=== PATIENT | male | born 1960 | race African-American/Black ===

== ENCOUNTER 2016-12-20 14:21 | Inpatient (IN) | payer OTHER ==
[2016-12-20 18:45] VITALS: BMI 20.7
--- NOTE | 2016-12-20 20:15 | HP ---
CIWA Score - CIWA Score Nausea/Vomitin Muscle Tremors: 4-Moderate,w/Arms Extend Anxiety: 4-Mod. Anxious/Guarded Agitation: 4-Moderately Restless Paroxysmal Sweats: No Perspiration Orientation: 1-Uncertain about Date Tacttile Disturbances: 0-None Auditory Disturbances: 0-None Visual Disturbances: 0-None Headache: 2-Mild CIWA-Ar Total Score: 18 Admission ROS BHS - HPI Chief Complaint: c/o alcohol withdrawal. seeking detox txment Allergies/Adverse Reactions: Allergies Allergy/AdvReac Type Severity Reaction Status Date / Time No Known Allergies Allergy Verified 12/20/16 19:52 History of Present Illness: 56 Y.O. MALE WITH ALCOHOLISM ADMITTED TO DETOX. CLIENT STATES LAST DETOX WAS 2015. SENT FROM [facility] WHERE HE PRESENTED EARLIER DUE TO INTOXICATION. REORTS LONGEST CLEAN TIME 5 MONTHS. Exam Limitations: No Limitations - Ebola screening Have you traveled outside of the country in the last 21 days: No Have you had contact with anyone from an Ebola affected area: No Do you have a fever: No - Review of Systems Constitutional: Chills, Loss of Appetite, Night Sweats EENT: reports: Other (EDENTULOUS) Respiratory: reports: No Symptoms reported Cardiac: reports: No Symptoms Reported GI: reports: Diarrhea, Vomiting : reports: No Symptoms Reported Musculoskeletal: reports: Back Pain Integumentary: reports: No Symptoms Reported Neuro: reports: Seizure (ETOH WITHDRAWAL) Endocrine: reports: No Symptoms Reported Hematology: reports: No Symptoms Reported Psychiatric: reports: Anxious, Depressed Other Systems: Reviewed and Negative Patient History - Patient Medical History Hx Anemia: No Hx Asthma: Yes Hx Chronic Obstructive Pulmonary Disease (COPD): Yes Hx Cancer: No Hx Cardiac Disorders: No Hx Congestive Heart Failure: No Hx Hypertension: Yes Hx Hypercholesterolemia: No Hx Pacemaker: No HX Cerebrovascular Accident: No Hx Seizures: Yes (alcohol related -last sz 8 months ago) Hx Dementia: No Hx Diabetes: No Hx Gastrointestinal Disorders: No Hx Liver Disease: No Hx Genitourinary Disorders: No Hx Sexually Transmitted Disorders: No Hx Renal Disease (ESRD): No Hx Thyroid Disease: No Hx Human Immunodeficiency Virus (HIV): No Hx Hepatitis C: No Hx Depression: Yes Hx Suicide Attempt: No Hx Bipolar Disorder: Yes Hx Schizophrenia: No Other Medical History: DENIES - Patient Surgical History Past Surgical History: No Hx Neurologic Surgery: No Hx Cataract Extraction: No Hx Cardiac Surgery: No Hx Lung Surgery: No Hx Breast Surgery: No Hx Breast Biopsy: No Hx Abdominal Surgery: No Hx Appendectomy: No Hx Cholecystectomy: No Hx Genitourinary Surgery: No Hx Section: No Hx Orthopedic Surgery: No Anesthesia Reaction: No - PPD History Previous Implant?: Yes Documented Results: Negative w/proof Implanted On Prior [facility] Admission?: Yes Date: 02/28/16 Results: 0MM PPD to be Administered?: No - Smoking Cessation Smoking history: Current every day smoker Have you smoked in the past 12 months: Yes Aproximately how many cigarettes per day: 4 Cigars Per Day: 0 Hx Chewing Tobacco Use: No Initiated information on smoking cessation: Yes 'Breaking Loose' booklet given: 12/20/16 - Substance & Tx. History Hx Alcohol Use: Yes Hx Substance Use: Yes Substance Use Type: Alcohol, Cocaine Hx Substance Use Treatment: Yes ([facility]) - Substances Abused Alcohol Route: Oral Frequency: Daily Amount used: bacardi 1 pint, beer 4 of 24 oz Age of first use: 12 Date of Last Use: 12/20/16 Cocaine Route: Smoking Frequency: Daily Amount used: $40 Age of first use: 23 Date of Last Use: 12/19/16 Admission Physical Exam S - Vital Signs Vital Signs: Vital Signs - 24 hr 12/20/16 18:39 Temperature 96.3 F L Pulse Rate 65 Respiratory 18 Rate Blood Pressure 160/113 - Physical General Appearance: Yes: Appropriately Dressed, Tremorous, Anxious HEENTM: Yes: EOMI, Normocephalic, JACQUIE, Pharynx Normal, Other (EDENTULOUS) Respiratory: Yes: Chest Non-Tender, Lungs Clear, Normal Breath Sounds, No Respiratory Distress, No Accessory Muscle Use Neck: Yes: No masses,lesions,Nodules, Supple, Trachea in good position Breast: Yes: Breast Exam Deferred Cardiology: Yes: Regular Rhythm, Regular Rate, S1, S2 Abdominal: Yes: Normal Bowel Sounds, Non Tender, Soft Genitourinary: Yes: Within Normal Limits Back: Yes: Normal Inspection Musculoskeletal: Yes: Gait Steady Extremities: Yes: Normal Capillary Refill, Normal Range of Motion, Non-Tender, Tremors 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 NML intact, Alert, Motor Strength 5/5 Integumentary: Yes: Normal Color, Dry, Warm Lymphatic: Yes: Within Normal Limits - Diagnostic (1) Alcohol dependence with uncomplicated withdrawal Current Visit: Yes Status: Chronic (2) Cocaine dependence Current Visit: Yes Status: Chronic Qualifiers: Substance use status: uncomplicated Qualified Code(s): F14.20 - Cocaine dependence, uncomplicated; F14.20 - Cocaine dependence, uncomplicated; F14.20 - Cocaine dependence, uncomplicated (3) Nicotine dependence Current Visit: Yes Status: Chronic Qualifiers: Nicotine product type: cigarettes Substance use status: uncomplicated Qualified Code(s): F17.210 - Nicotine dependence, cigarettes, uncomplicated; F17.210 - Nicotine dependence, cigarettes, uncomplicated (4) COPD (chronic obstructive pulmonary disease) Current Visit: Yes Status: Chronic Qualifiers: Chronic bronchitis type: simple (5) HTN (hypertension) Current Visit: Yes Status: Chronic Qualifiers: Hypertension type: essential hypertension Qualified Code(s): I10 - Essential (primary) hypertension; I10 - Essential (primary) hypertension; I10 - Essential (primary) hypertension (6) Asthma Current Visit: Yes Status: Chronic Qualifiers: Asthma severity: mild Asthma persistence: unspecified Asthma complication type: uncomplicated Qualified Code(s): J45.909 - Unspecified asthma, uncomplicated; J45.909 - Unspecified asthma, uncomplicated; J45.909 - Unspecified asthma, uncomplicated Cleared for Admission BHS - Detox or Rehab [facility] Level of Care: Medically Managed Detox Regimen/Protocol: Librium [facility] Breath Alcohol Content Breath Alcohol Content: 0 Urine Drug Screen - Results Drug Screen Negative: No Urine Drug Screen Results: AIRAM-Cocaine, BZO-Benzodiazepines, MTD-Methadone, TCA- Tricyclic Antidepress
[2016-12-20] MEDS ORDERED: hydrOXYzine PAMOATE 50 MG CAPSULE (FP) PO PRN (20:23)
[2016-12-20] MEDS ORDERED: NICOTINE POLACRILEX 2 MG GUM BUC PRN (20:23)
[2016-12-20] MEDS ORDERED: MAGNESIUM CITRATE 300 ML BOTTLE PO PRN (20:23)
[2016-12-20] MEDS ORDERED: MAGNESIUM HYDROX 2400MG/30ML ORAL SUSPENSION 30 ML CUP PO PRN (20:23)
[2016-12-20] MEDS ORDERED: diphenhydrAMINE HCL 50 MG CAPSULE PO PRN (20:23)
[2016-12-20] MEDS ORDERED: P-EPHED 60MG/TRIPROLIDI 2.5MG TABLET PO PRN (20:23)
[2016-12-20] MEDS ORDERED: MENTHOL/PHENOL 1 EACH UD MM PRN (20:23)
[2016-12-20] MEDS ORDERED: guaiFENesin/D-METHORPHAN HB 10 ML UNIT-DOSE CUPS PO PRN (20:23)
[2016-12-20] MEDS ORDERED: MAG HYDROX/AL HYDROX/SIMETH 30 ML UNIT-DOSE CUP PO PRN (20:23)
[2016-12-20] MEDS ORDERED: ACETAMINOPHEN 325 MG TABLET (FP) PO PRN (20:23)
[2016-12-20] MEDS ORDERED: LOPERAMIDE HCL 2 MG CAPSULE PO PRN (20:23)
[2016-12-20] MEDS ORDERED: IBUPROFEN 400 MG TABLET (FP) PO PRN (20:23)
[2016-12-20] MEDS ORDERED: chlordiazePOXIDE HCL 25 MG CAPSULE PO PRN (20:23)
[2016-12-20] MEDS ORDERED: ALBUTEROL SO4 18 GM HFA INHALER IH PRN (20:24)
[2016-12-20] MEDS: MONTELUKAST NA 10 MG TABLET PO SCH (23:22)
[2016-12-20] MEDS: amLODIPine BESYLATE 10 MG TABLET (FP) PO SCH (23:22)
[2016-12-20] MEDS: chlordiazePOXIDE HCL 25 MG CAPSULE PO SCH (23:22)
[2016-12-20] MEDS: THIAMINE HCL 100 MG TABLET (FP) PO SCH (23:23)
[2016-12-20] MEDS: FLUTICASONE PROP 0.05% 16 GM NASAL SPRAY NS SCH (23:23)
[2016-12-20] MEDS: NICOTINE 14 MG/24 HOURS TOPICAL PATCH TD SCH (23:23)
[2016-12-20] MEDS: ONDANSETRON *ODT* 4 MG TABLET SL PRN (23:24)
[2016-12-21 01:30] LABS: URINE APPEARANCE CLEAR; URINE BILIRUBIN NEGATIVE (NEGATIVE); URINE BLOOD NEGATIVE (NEGATIVE); URINE COLOR DKYELLOW; URINE GLUCOSE (UA) NEGATIVE (NEGATIVE); URINE KETONE NEGATIVE (NEGATIVE); URINE NITRITE NEGATIVE (NEGATIVE); URINE PROTEIN 1+ (NEGATIVE); URINE UROBILINOGEN NEGATIVE mg/dL (0.2-1.0)
[2016-12-21 01:46] LABS: URINE MUCUS MANY; URINE RBC 2 /hpf (0-3)
[2016-12-21] MEDS: chlordiazePOXIDE HCL 25 MG CAPSULE PO SCH ×4 (05:13→22:08)
[2016-12-21] MEDS ORDERED: METHADONE HCL 40 MG DISPERSABLE TABLET PO SCH (08:30)
[2016-12-21 08:32] LABS: URINE WBC 2 /hpf (3-5)
[2016-12-21] MEDS ORDERED: METHADONE HCL 40 MG DISPERSABLE TABLET ONE (09:01)
[2016-12-21] MEDS ORDERED: METHADONE HCL 10 MG TABLET ONE (09:02)
[2016-12-21 09:54] LABS: MCH 32.1 pg (25.7-33.7); MCHC 33.5 g/dl (32.0-35.9); MEAN CELL VOLUME 95.6 fl (80-96); MEAN PLT VOLUME 7.9 fl (7.5-11.1); PLATELET COUNT 232 K/MM3 (134-434); RDW 12.9 % (11.9-15.9)
[2016-12-21 10:02] LABS: ALBUMIN 3.3 g/dl (3.4-5.0); ANION GAP 5 (8-16); BILIRUBIN,TOTAL 0.4 mg/dL (0.2-1.0); CALCIUM 8.2 mg/dL (8.5-10.1); CO2 34 mmol/L (21-32); CREATININE 0.8 mg/dL (0.7-1.3); GLUCOSE,RANDOM 87 mg/dL (74-106); SGOT/AST 13 U/L (15-37); SGPT/ALT 21 U/L (12-78); TOT PROT 6.6 g/dl (6.4-8.2)
[2016-12-21 10:03] LABS: ALK PHOS 122 U/L (45-117)
[2016-12-21] MEDS: PRENATAL VITAMINS W/ FOLIC ACID TABLET (FP) PO SCH (10:07)
[2016-12-21] MEDS: amLODIPine BESYLATE 10 MG TABLET (FP) PO SCH (10:07)
[2016-12-21] MEDS: METHADONE 80 MG, METHADONE 20 MG PO SCH (10:08)
[2016-12-21] MEDS: NICOTINE 14 MG/24 HOURS TOPICAL PATCH TD SCH ×2 (10:11→10:13)
[2016-12-21] MEDS: ONDANSETRON *ODT* 4 MG TABLET SL PRN ×2 (10:12→17:42)
[2016-12-21 10:24] LABS: URINE LEUK ESTERASE Negative (NEGATIVE)
--- NOTE | 2016-12-21 10:25 | PN ---
BHS CIWA - CIWA Score Nausea/Vomitin Muscle Tremors: 3 Anxiety: 3 Paroxysmal Sweats: 1-Minimal Palms Moist Orientation: 0-Oriented Tacttile Disturbances: 1-Very Mild Itch/Numbness Auditory Disturbances: 1-Very Mild Visual Disturbances: 0-None Headache: 2-Mild BHS Progress Note (SOAP) Subjective: alert,irritable,anxious,interrupted sleep,tremor,aching pain Objective: 12/21/16 10:22 Vital Signs Temperature 97.9 F 12/21/16 10:00 Pulse Rate 60 12/21/16 10:00 Respiratory Rate 20 12/21/16 10:00 Blood Pressure 155/79 12/21/16 10:00 O2 Sat by Pulse Oximetry (%) ekg sinus bradycardia 54/min,non specific t wave no chest pain,no sob,no dizziness Laboratory Last Values WBC 5.0 K/mm3 (4.0-10.0) 12/21/16 07:00 RBC 4.05 M/mm3 (4.00-5.60) 12/21/16 07:00 Hgb 13.0 GM/dL (11.7-16.9) 12/21/16 07:00 Hct 38.7 % (35.4-49) 12/21/16 07:00 MCV 95.6 fl (80-96) 12/21/16 07:00 MCH 32.1 pg (25.7-33.7) 12/21/16 07:00 MCHC 33.5 g/dl (32.0-35.9) 12/21/16 07:00 RDW 12.9 % (11.9-15.9) 12/21/16 07:00 Plt Count 232 K/MM3 (134-434) 12/21/16 07:00 MPV 7.9 fl (7.5-11.1) 12/21/16 07:00 Urine Color Dkyellow 12/20/16 23:30 Urine Appearance Clear 12/20/16 23:30 Urine pH 6.0 (5.0-8.0) 12/20/16 23:30 Urine Protein 1+ (NEGATIVE) H 12/20/16 23:30 Urine Glucose (UA) Negative (NEGATIVE) 12/20/16 23:30 Urine Ketones Negative (NEGATIVE) 12/20/16 23:30 Urine Blood Negative (NEGATIVE) 12/20/16 23:30 Urine Nitrite Negative (NEGATIVE) 12/20/16 23:30 Urine Bilirubin Negative (NEGATIVE) 12/20/16 23:30 Urine Urobilinogen Negative mg/dL (0.2-1.0) 12/20/16 23:30 Urine RBC 2 /hpf (0-3) 12/20/16 23:30 Urine WBC 2 /hpf (3-5) 12/20/16 23:30 Urine Mucus Many 12/20/16 23:30 RPR Titer Nonreactive (NONREACTIVE) 12/21/16 07:00 labs pending Assessment: 12/21/16 10:24 withdrawal symptom Plan: continue detox
--- NOTE | 2016-12-21 12:14 | CONSULT ---
[facility] Psychiatric Consult - Data Date of interview: 12/21/16 Admission source: [facility] Identifying data: Another admission to [facility] for this 56 y/o AA male seeking detox treatment on for alcohol and cocaine dependence.Patient is ,a father of five,domiciled,unemployed and supported on SSI benefits. Substance Abuse History: Confirmed by patient. Smoking Cessation. Smoking history: Current every day smoker. Have you smoked in the past 12 months: Yes. Aproximately how many cigarettes per day: 4. Cigars Per Day: 0. Hx Chewing Tobacco Use: No. Initiated information on smoking cessation: Yes. 'Breaking Loose' booklet given: 12/20/16. - Substance & Tx. History. Hx Alcohol Use: Yes. Hx Substance Use: Yes. Substance Use Type: Alcohol, Cocaine. Hx Substance Use Treatment: Yes ([facility]). - Substances Abused. Alcohol. Route: Oral. Frequency: Daily. Amount used: bacardi 1 pint, beer 4 of 24 oz. Age of first use: 12. Date of Last Use: 12/20/16. Cocaine. Route: Smoking. Frequency: Daily. Amount used: $40. Age of first use: 23. Date of Last Use: 12/19/16 Medical History: Significant for asthma,emphysema/COPD,hypertension and alcohol- related seizures. Psychiatric History: Patient denies history of psychiatric hospitalizations.Mr Stevens reports OPD care at the [facility] health clinic on [facility] in the [place].Diagnosed with MDD and prescribed prozac (dose not recalled).History of one suicide attempt (via overdose with pills).Currently on methadone maintenance (100 mg/day). Physical/Sexual Abuse/Trauma History: Patient denies. Mental Status Exam - Mental Status Exam Alert and Oriented to: Time, Place, Person Cognitive Function: Good Patient Appearance: Well Groomed Mood: Withdrawn, Hopeful Affect: Mood Congruent Patient Behavior: Fatigued, Appropriate, Cooperative Speech Pattern: Clear Voice Loudness: Normal Thought Process: Goal Oriented Thought Disorder: Not Present Hallucinations: Denies Suicidal Ideation: Denies Homicidal Ideation: Denies Insight/Judgement: Poor Sleep: Poorly, Difficulty falling asleep (wants ambien) Appetite: Fair Muscle strength/Tone: Normal Gait/Station: Normal Psychiatric Findings - Problem List ([place] 1, 2,3) (1) Alcohol dependence with uncomplicated withdrawal Current Visit: Yes Status: Acute (2) Cocaine dependence Current Visit: Yes Status: Acute Qualifiers: Substance use status: uncomplicated Qualified Code(s): F14.20 - Cocaine dependence, uncomplicated; F14.20 - Cocaine dependence, uncomplicated; F14.20 - Cocaine dependence, uncomplicated (3) Opioid dependence on agonist therapy Current Visit: Yes Status: Acute (4) Nicotine dependence Current Visit: Yes Status: Acute Qualifiers: Nicotine product type: cigarettes Substance use status: uncomplicated Qualified Code(s): F17.210 - Nicotine dependence, cigarettes, uncomplicated; F17.210 - Nicotine dependence, cigarettes, uncomplicated (5) Substance induced mood disorder Current Visit: Yes Status: Acute (6) Asthma Current Visit: Yes Status: Chronic Qualifiers: Asthma severity: mild Asthma persistence: unspecified Asthma complication type: uncomplicated Qualified Code(s): J45.909 - Unspecified asthma, uncomplicated; J45.909 - Unspecified asthma, uncomplicated; J45.909 - Unspecified asthma, uncomplicated (7) COPD (chronic obstructive pulmonary disease) Current Visit: Yes Status: Chronic Qualifiers: Chronic bronchitis type: simple (8) HTN (hypertension) Current Visit: Yes Status: Chronic Qualifiers: Hypertension type: essential hypertension Qualified Code(s): I10 - Essential (primary) hypertension; I10 - Essential (primary) hypertension; I10 - Essential (primary) hypertension - Initial Treatment Plan Initial Treatment Plan: Psychoeducation.Detoxification.Prozac 10 mg po daily.Side effects/benefits are discussed with the patient.He agrees with this careplan.Observation.
[2016-12-21] MEDS: THIAMINE HCL 100 MG TABLET (FP) PO SCH (22:08)
[2016-12-21] MEDS: MONTELUKAST NA 10 MG TABLET PO SCH (22:08)
[2016-12-21] MEDS: FLUTICASONE PROP 0.05% 16 GM NASAL SPRAY NS SCH (22:08)
[2016-12-22] MEDS ORDERED: METHADONE HCL 40 MG DISPERSABLE TABLET ONE (05:02)
[2016-12-22] MEDS ORDERED: METHADONE HCL 10 MG TABLET ONE (05:02)
[2016-12-22] MEDS: METHADONE 80 MG, METHADONE 20 MG PO SCH (05:06)
[2016-12-22] MEDS: chlordiazePOXIDE HCL 25 MG CAPSULE PO SCH ×2 (05:06→10:33)
[2016-12-22] MEDS ORDERED: FLUoxetine HCL 10 MG CAPSULE (FP) PO SCH (10:00)
[2016-12-22] MEDS: PRENATAL VITAMINS W/ FOLIC ACID TABLET (FP) PO SCH (10:32)
[2016-12-22] MEDS: NICOTINE 14 MG/24 HOURS TOPICAL PATCH TD SCH (10:32)
[2016-12-22] MEDS: amLODIPine BESYLATE 10 MG TABLET (FP) PO SCH (10:33)
--- NOTE | 2016-12-22 10:40 | PN ---
S CIWA - CIWA Score Nausea/Vomitin Muscle Tremors: 3 Anxiety: 3 Agitation: 2 Paroxysmal Sweats: 1-Minimal Palms Moist Orientation: 0-Oriented Tacttile Disturbances: 1-Very Mild Itch/Numbness Auditory Disturbances: 1-Very Mild Visual Disturbances: 0-None Headache: 2-Mild CIWA-Ar Total Score: 16 BHS Progress Note (SOAP) Subjective: alert,irritable,anxious,interrupted sleep,tremor Objective: 12/22/16 10:39 Vital Signs Temperature 98.4 F 12/22/16 06:21 Pulse Rate 51 L 12/22/16 06:21 Respiratory Rate 16 12/22/16 06:21 Blood Pressure 146/89 12/22/16 06:21 O2 Sat by Pulse Oximetry (%) Laboratory Last Values WBC 5.0 K/mm3 (4.0-10.0) 12/21/16 07:00 RBC 4.05 M/mm3 (4.00-5.60) 12/21/16 07:00 Hgb 13.0 GM/dL (11.7-16.9) 12/21/16 07:00 Hct 38.7 % (35.4-49) 12/21/16 07:00 MCV 95.6 fl (80-96) 12/21/16 07:00 MCH 32.1 pg (25.7-33.7) 12/21/16 07:00 MCHC 33.5 g/dl (32.0-35.9) 12/21/16 07:00 RDW 12.9 % (11.9-15.9) 12/21/16 07:00 Plt Count 232 K/MM3 (134-434) 12/21/16 07:00 MPV 7.9 fl (7.5-11.1) 12/21/16 07:00 Sodium 143 mmol/L (136-145) 12/21/16 07:00 Potassium 3.9 mmol/L (3.5-5.1) 12/21/16 07:00 Chloride 104 mmol/L (98-107) 12/21/16 07:00 Carbon Dioxide 34 mmol/L (21-32) H 12/21/16 07:00 Anion Gap 5 (8-16) L 12/21/16 07:00 BUN 11 mg/dL (7-18) 12/21/16 07:00 Creatinine 0.8 mg/dL (0.7-1.3) D 12/21/16 07:00 Creat Clearance w eGFR > 60 (>60) 12/21/16 07:00 Random Glucose 87 mg/dL (74-106) D 12/21/16 07:00 Calcium 8.2 mg/dL (8.5-10.1) L 12/21/16 07:00 Total Bilirubin 0.4 mg/dL (0.2-1.0) 12/21/16 07:00 AST 13 U/L (15-37) L D 12/21/16 07:00 ALT 21 U/L (12-78) 12/21/16 07:00 Alkaline Phosphatase 122 U/L (45-117) H D 12/21/16 07:00 Total Protein 6.6 g/dl (6.4-8.2) 12/21/16 07:00 Albumin 3.3 g/dl (3.4-5.0) L 12/21/16 07:00 Urine Color Dkyellow 12/20/16 23:30 Urine Appearance Clear 12/20/16 23:30 Urine pH 6.0 (5.0-8.0) 12/20/16 23:30 Ur Specific [place] 1.025 (1.005-1.025) 12/20/16 23:30 Urine Protein 1+ (NEGATIVE) H 12/20/16 23:30 Urine Glucose (UA) Negative (NEGATIVE) 12/20/16 23:30 Urine Ketones Negative (NEGATIVE) 12/20/16 23:30 Urine Blood Negative (NEGATIVE) 12/20/16 23:30 Urine Nitrite Negative (NEGATIVE) 12/20/16 23:30 Urine Bilirubin Negative (NEGATIVE) 12/20/16 23:30 Urine Urobilinogen Negative mg/dL (0.2-1.0) 12/20/16 23:30 Ur Leukocyte Esterase Negative (NEGATIVE) 12/20/16 23:30 Urine RBC 2 /hpf (0-3) 12/20/16 23:30 Urine WBC 2 /hpf (3-5) 12/20/16 23:30 Urine Mucus Many 12/20/16 23:30 RPR Titer Nonreactive (NONREACTIVE) 12/21/16 07:00 Assessment: 12/22/16 10:39 withdrawal symptom Plan: continue detox
--- NOTE | 2016-12-22 11:05 | EKG ---
Test Reason : Blood Pressure : / mmHG Vent. Rate : 054 BPM Atrial Rate : 054 BPM P-R Int : 164 ms QRS Dur : 092 ms QT Int : 482 ms P-R-T Axes : 072 029 -01 degrees QTc Int : 457 ms SINUS BRADYCARDIA NONSPECIFIC T WAVE ABNORMALITY ABNORMAL ECG NO PREVIOUS ECGS AVAILABLE Confirmed by KIERSTEN YADAV MD ([id number]) on 12/22/2016 11:05:32 AM Referred By: Confirmed By:KIERSTEN YADAV MD
[2016-12-22 13:41] VITALS: BP 151/104; PULSE 60; TEMP 96.8
--- NOTE | 2016-12-22 15:25 | PN ---
S Progress Note Note: patient did not want to complete treatment ,seen by counselor,did not want to wait,signed release ama
--- NOTE | 2016-12-22 15:26 | DS ---
[facility] Detox Discharge Summary Admission Date: 12/20/16 Discharge Date: 12/22/16 - History Present History: Alcohol Dependence, Cocaine Dependence Additional Comments: patient did not want to complete treatment,did not want to wait,seen by counselor,signed release ama Pertinent Past History: nicotine dependence copd asthma - Physical Exam Results Vital Signs: Vital Signs Temperature 96.8 F L 12/22/16 13:40 Pulse Rate 60 12/22/16 13:40 Respiratory Rate 16 12/22/16 13:40 Blood Pressure 151/104 12/22/16 13:40 O2 Sat by Pulse Oximetry (%) Pertinent Admission Physical Exam Findings: withdrawal symptom - Medication Discharge Medications: Ambulatory Orders Albuterol Sulfate Inhaler - [Ventolin Hfa Inhaler -] 2 inh PO Q4H PRN 02/26/16 Amlodipine Besylate [Norvasc -] 10 mg PO DAILY 02/26/16 Fluticasone Prop 0.05% Nasal [Flonase -] 1 spray NS HS 02/26/16 Montelukast Na [Singulair -] 10 mg PO HS 02/26/16 Fluoxetine HCl [Prozac] 10 mg PO DAILY 12/20/16 Fluoxetine HCl [Prozac -] 10 mg PO DAILY #30 capsule 12/21/16 - Diagnosis (1) Alcohol dependence with uncomplicated withdrawal Status: Acute (2) Cocaine dependence Status: Acute Qualifiers: Substance use status: uncomplicated Qualified Code(s): F14.20 - Cocaine dependence, uncomplicated; F14.20 - Cocaine dependence, uncomplicated; F14.20 - Cocaine dependence, uncomplicated (3) Nicotine dependence Status: Acute Qualifiers: Nicotine product type: cigarettes Substance use status: uncomplicated Qualified Code(s): F17.210 - Nicotine dependence, cigarettes, uncomplicated; F17.210 - Nicotine dependence, cigarettes, uncomplicated (4) Asthma Status: Chronic Qualifiers: Asthma severity: mild Asthma persistence: unspecified Asthma complication type: uncomplicated Qualified Code(s): J45.909 - Unspecified asthma, uncomplicated; J45.909 - Unspecified asthma, uncomplicated; J45.909 - Unspecified asthma, uncomplicated (5) COPD (chronic obstructive pulmonary disease) Status: Chronic Qualifiers: Chronic bronchitis type: simple (6) HTN (hypertension) Status: Chronic Qualifiers: Hypertension type: essential hypertension Qualified Code(s): I10 - Essential (primary) hypertension; I10 - Essential (primary) hypertension; I10 - Essential (primary) hypertension (7) Opioid dependence on agonist therapy Status: Acute - AMA Did Patient Leave Against Medical Advice: Yes
[2016-12-22] MEDS ORDERED: chlordiazePOXIDE 5 MG CAPSULE PO SCH (23:00)
[2016-12-23] MEDS ORDERED: chlordiazePOXIDE HCL 10 MG CAPSULE PO SCH (23:00)
== END 2016-12-22 14:40 | disposition left against medical advice (07) | DRG 770 ==
LOC: YASAS 14:21 → Y6N 21:40
PROVIDERS: ADMIT Internal Medicine; ATTEND Internal Medicine
PROC: HZ2ZZZZ Detoxification Services for Substance Abuse Treatment (ICD-10-PCS; principal; 2016-12-20)
DX: F11.20 Opioid dependence, uncomplicated (principal); F10.230 Alcohol dependence with withdrawal, uncomplicated; F14.20 Cocaine dependence, uncomplicated; F17.210 Nicotine dependence, cigarettes, uncomplicated; F19.24 Other psychoactive substance dependence with psychoactive substance-induced mood disorder; F32.9 Major depressive disorder, single episode, unspecified; I10 Essential (primary) hypertension; J45.909 Unspecified asthma, uncomplicated; J44.9 Chronic obstructive pulmonary disease, unspecified; Z86.69 Personal history of other diseases of the nervous system and sense organs
CPT/HCPCS: 36415; 80053; 81003; 81015; 85027; 86593; 93005; 93010

== ENCOUNTER 2018-09-04 13:55 | Inpatient (IN) | payer OTHER ==
[2018-09-04 17:29] VITALS: BMI 20.3
--- NOTE | 2018-09-04 19:08 | HP ---
CIWA Score Nausea/Vomitin Muscle Tremors: 3 Anxiety: 3 Agitation: 1-Slight > Activity Paroxysmal Sweats: 1-Minimal Palms Moist Orientation: 0-Oriented Tacttile Disturbances: 0-None Auditory Disturbances: 0-None Visual Disturbances: 0-None Headache: 2-Mild CIWA-Ar Total Score: 12 - Admission Criteria OASAS Guidelines: Admission for Medically Managed Detox: Requires at least one of the followin. CIWA greater than 12 2. Seizures within the past 24 hours 3. Delirium tremens within the past 24 hours 4. Hallucinations within the past 24 hours 5. Acute intervention needed for co occurring medical disorder 6. Acute intervention needed for co occurring psychiatric disorder 7. Severe withdrawal that cannot be handled at a lower level of care (continued vomiting, continued diarrhea, abnormal vital signs) requiring intravenous medication and/or fluids 8. Patient presents the following: CIWA greater than 12 Admission Criteria Met: Admission criteria met Admission ROS BHS - HPI Chief Complaint: requesting detox from alcohol and marijuana 58 yo with HTN- no norvasc, TMJ, emphysema/COPD/asthma. Has a new PCP. Lives in [facility]. Has disability from COPD. Was last here about 18 months ago. In a methadone program in [facility] [place]. States he has increased his alcohol consumption in the last 2 years. Is tired of all his drug use. Would like to stop. 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 Utox- kian/MTD/BZO Allergies/Adverse Reactions: Allergies Allergy/AdvReac Type Severity Reaction Status Date / Time No Known Allergies Allergy Verified 09/04/18 17:22 - Ebola screening Have you traveled outside of the country in the last 21 days: No Have you had contact with anyone from an Ebola affected area: No Do you have a fever: No - Review of Systems EENT: reports: No Symptoms Reported Respiratory: reports: No Symptoms reported Cardiac: reports: No Symptoms Reported GI: reports: No Symptoms Reported : reports: No Symptoms Reported Musculoskeletal: reports: No Symptoms Reported Integumentary: reports: No Symptoms Reported Neuro: reports: No Symptoms reported, Unsteady Gait Hematology: reports: No Symptoms Reported Psychiatric: reports: No Sypmtoms Reported Other Systems: Reviewed and Negative Patient History - Patient Medical History Hx Anemia: No Hx Asthma: Yes Hx Chronic Obstructive Pulmonary Disease (COPD): Yes Hx Cancer: No Hx Cardiac Disorders: No Hx Congestive Heart Failure: No Hx Hypertension: Yes Hx Hypercholesterolemia: No Hx Pacemaker: No HX Cerebrovascular Accident: No Hx Seizures: Yes (alcohol related -last sz 8 months ago) Hx Dementia: No Hx Diabetes: No Hx Gastrointestinal Disorders: No Hx Liver Disease: No Hx Genitourinary Disorders: No Hx Sexually Transmitted Disorders: No Hx Renal Disease (ESRD): No Hx Thyroid Disease: No Hx Human Immunodeficiency Virus (HIV): No Hx Hepatitis C: No Hx Depression: Yes Hx Suicide Attempt: No Hx Bipolar Disorder: Yes Hx Schizophrenia: No - Patient Surgical History Past Surgical History: No Hx Neurologic Surgery: No Hx Cataract Extraction: No Hx Cardiac Surgery: No Hx Lung Surgery: No Hx Breast Surgery: No Hx Breast Biopsy: No Hx Abdominal Surgery: No Hx Appendectomy: No Hx Cholecystectomy: No Hx Genitourinary Surgery: No Hx Section: No Hx Orthopedic Surgery: No Other Surgical History: h/o pneumothorax and partial lung removal due to cocaine ? Anesthesia Reaction: No - PPD History Date: 02/28/16 Results: 0MM - Smoking Cessation Smoking history: Current every day smoker Have you smoked in the past 12 months: Yes Aproximately how many cigarettes per day: 4 Cigars Per Day: 0 Hx Chewing Tobacco Use: No Initiated information on smoking cessation: Yes 'Breaking Loose' booklet given: 09/04/18 - Substance & Tx. History Hx Alcohol Use: Yes Hx Substance Use: Yes Substance Use Type: Alcohol, Cocaine Hx Substance Use Treatment: Yes - Substances abused Alcohol Substance route: Oral Frequency: Daily Amount used: 4 48OZ BEER Age of first use: 15 Date of last use: 09/04/18 Heroin Other (specify): SNIFF Frequency: Daily Amount used: 1 BUNDLE Age of first use: 24 Date of last use: 09/04/18 Cocaine Other (specify): SNIFF Frequency: Daily Amount used: $150 Age of first use: 24 Date of last use: 09/04/18 Admission Physical Exam BHS - Vital Signs Vital Signs: Vital Signs - 24 hr 09/04/18 09/04/18 17:20 18:45 Temperature 98.2 F 98.2 F Pulse Rate 63 63 Respiratory 18 18 Rate Blood Pressure 170/116 H 170/116 H - Physical General Appearance: Yes: Mild Distress, Thin HEENTM: Yes: Within Normal Limits, Other (edentulous) Respiratory: Yes: Within Normal Limits, Lungs Clear Neck: Yes: Within Normal Limits, No masses,lesions,Nodules Cardiology: Yes: Within Normal Limits, Regular Rate Abdominal: Yes: Within Normal Limits, Normal Bowel Sounds, Flat Back: Yes: Within Normal Limits, Normal Inspection Musculoskeletal: Yes: Within Normal Limits Extremities: Yes: Within Normal Limits Neurological: Yes: Within Normal Limits Integumentary: Yes: Within Normal Limits Lymphatic: Yes: Within Normal Limits - Diagnostic (1) Alcohol dependence with uncomplicated withdrawal Current Visit: No Status: Acute (2) Cocaine dependence Current Visit: No Status: Acute Qualifiers: Substance use status: uncomplicated Qualified Code(s): F14.20 - Cocaine dependence, uncomplicated (3) Nicotine dependence Current Visit: No Status: Acute Qualifiers: Nicotine product type: cigarettes Substance use status: uncomplicated Qualified Code(s): F17.210 - Nicotine dependence, cigarettes, uncomplicated (4) Opioid dependence on agonist therapy Current Visit: No Status: Acute (5) Asthma Current Visit: No Status: Chronic Qualifiers: Asthma severity: mild Asthma persistence: unspecified Asthma complication type: uncomplicated Qualified Code(s): J45.909 - Unspecified asthma, uncomplicated (6) COPD (chronic obstructive pulmonary disease) Current Visit: No Status: Chronic Qualifiers: Chronic bronchitis type: simple (7) HTN (hypertension) Current Visit: No Status: Chronic Qualifiers: Hypertension type: essential hypertension Qualified Code(s): I10 - Essential (primary) hypertension (8) Methadone maintenance therapy patient Current Visit: No Status: Chronic Breathalyzer - Breathalyzer Breathalyzer: 0 Urine Drug Screen - Test Device Lot number: [id number] Expiration date: 05/04/20 - Control Is test valid?: Yes - Results Drug screen NEGATIVE: No Urine drug screen results: KIAN-Cocaine, MTD-Methadone, BZO-Benzodiazepines Inpatient Rehab Admission - Rehab Decision to Admit Inpatient rehab admission?: No
[2018-09-04] MEDS ORDERED: MAGNESIUM CITRATE 300 ML BOTTLE PO PRN (19:13)
[2018-09-04] MEDS ORDERED: IBUPROFEN 400 MG TABLET (FP) PO PRN (19:13)
[2018-09-04] MEDS ORDERED: MENTHOL/PHENOL 1 EACH UD MM PRN (19:13)
[2018-09-04] MEDS ORDERED: ACETAMINOPHEN 325 MG TABLET (FP) PO PRN ×2 (19:13)
[2018-09-04] MEDS ORDERED: hydrOXYzine PAMOATE 25 MG CAPSULE (FP) PO PRN (19:13)
[2018-09-04] MEDS ORDERED: METHOCARBAMOL 500 MG TABLET PO PRN (19:13)
[2018-09-04] MEDS ORDERED: MAGNESIUM HYDROX 2400MG/30ML ORAL SUSPENSION 30 ML CUP PO PRN (19:13)
[2018-09-04] MEDS ORDERED: NICOTINE POLACRILEX 4 MG GUM BUC PRN (19:13)
[2018-09-04] MEDS ORDERED: BISMUTH SUBSALICYLATE 524 MG/30 ML UD PO PRN (19:13)
[2018-09-04] MEDS ORDERED: MAG HYDROX/AL HYDROX/SIMETH 30 ML UNIT-DOSE CUP PO PRN (19:13)
[2018-09-04] MEDS ORDERED: ALBUTEROL SO4 8 GM HFA INHALER IH PRN (19:15)
[2018-09-04] MEDS ORDERED: chlordiazePOXIDE HCL 25 MG CAPSULE PO ONE (19:16)
[2018-09-04] MEDS ORDERED: chlordiazePOXIDE HCL 25 MG CAPSULE PO PRN (19:16)
[2018-09-04] MEDS: amLODIPine BESYLATE 10 MG TABLET (FP) PO SCH (20:33)
[2018-09-04] MEDS: THIAMINE HCL 100 MG TABLET (FP) PO SCH (22:03)
[2018-09-04] MEDS: chlordiazePOXIDE HCL 25 MG CAPSULE PO SCH (22:03)
[2018-09-04] MEDS: MONTELUKAST NA 10 MG TABLET PO SCH (22:03)
[2018-09-04] MEDS: MELATONIN 5 MG TABLETS PO PRN (22:05)
[2018-09-04] MEDS: FLUTICASONE PROP 0.05% 16 GM NASAL SPRAY NS SCH (22:44)
[2018-09-05] MEDS: chlordiazePOXIDE HCL 25 MG CAPSULE PO SCH ×4 (05:37→22:06)
[2018-09-05] MEDS: cloNIDine HCL 0.1 MG TABLET PO PRN (05:38)
[2018-09-05] MEDS ORDERED: METHADONE HCL 10 MG TABLET PO ONE (08:46)
[2018-09-05] MEDS ORDERED: METHADONE 80 MG, METHADONE 20 MG, METHADONE 5 MG PO ONE (09:00)
[2018-09-05] MEDS ORDERED: METHADONE HCL 10 MG TABLET ONE (09:30)
[2018-09-05] MEDS ORDERED: METHADONE HCL 40 MG DISPERSABLE TABLET ONE (09:31)
[2018-09-05] MEDS ORDERED: METHADONE HCL 5 MG TABLET ONE (09:31)
[2018-09-05 09:56] LABS: HEMATOCRIT 37.7 % (35.4-49); HEMOGLOBIN 12.4 GM/dL (11.7-16.9); MCH 31.8 pg (25.7-33.7); MEAN CELL VOLUME 96.4 fl (80-96); MEAN PLT VOLUME 7.8 fl (7.5-11.1); PLATELET COUNT 244 K/MM3 (134-434); RBC 3.91 M/mm3 (4.00-5.60); RDW 13.9 % (11.9-15.9); WHITE BLOOD COUNT 4.1 K/mm3 (4.0-10.0)
[2018-09-05 10:09] LABS: BILIRUBIN,TOTAL 0.5 mg/dL (0.2-1); BLOOD UREA NITROGEN 11.8 mg/dL (7-18); CALCIUM 8.6 mg/dL (8.5-10.1); CREATININE 0.9 mg/dL (0.55-1.3); POTASSIUM 3.9 mmol/L (3.5-5.1)
[2018-09-05] MEDS: PRENATAL VITAMINS W/ FOLIC ACID TABLET (FP) PO SCH (10:12)
[2018-09-05] MEDS: amLODIPine BESYLATE 10 MG TABLET (FP) PO SCH (10:13)
[2018-09-05] MEDS: FLUoxetine HCL 20 MG CAPSULE (FP) PO SCH (10:13)
--- NOTE | 2018-09-05 10:21 | PN ---
[facility] CIWA - CIWA Score Nausea/Vomitin-Mild Nausea/No Vomiting Muscle Tremors: 2 Anxiety: 1-Mildly Anxious Agitation: 1-Slight > Activity Paroxysmal Sweats: 1-Minimal Palms Moist Orientation: 0-Oriented Tacttile Disturbances: 0-None Auditory Disturbances: 0-None Visual Disturbances: 0-None Headache: 1-Very Mild CIWA-Ar Total Score: 7 BHS Progress Note (SOAP) Subjective: pt states doing well with alcohol detoc protocol. Pt states he needs Tegretol for TMJ. Called pharmacy- pt is getting Tegretrol ER 300mg. Pt states he is actually taking Tegretol 400mg for TMJ sx- d/w pt that he needs to d/w PCP before he changes doses of medications. O: Vital Signs - 24 hr 09/04/18 09/04/18 09/04/18 17:20 18:45 21:23 Temperature 98.2 F 98.2 F 97.7 F Pulse Rate 63 63 63 Respiratory 18 18 19 Rate Blood Pressure 170/116 H 170/116 H 179/108 H 09/05/18 09/05/18 09/05/18 01:22 03:30 06:09 Temperature 98.3 F Pulse Rate 62 Respiratory 18 18 16 Rate Blood Pressure 162/93 09/05/18 09:04 Temperature 98.4 F Pulse Rate 59 L Respiratory 18 Rate Blood Pressure 144/94 Laboratory Tests 09/05/18 09/05/18 06:30 06:30 WBC 4.1 RBC 3.91 L Hgb 12.4 Hct 37.7 MCV 96.4 H MCH 31.8 MCHC 33.0 RDW 13.9 Plt Count 244 MPV 7.8 Sodium 142 Potassium 3.9 Chloride 107 Carbon Dioxide 32 Anion Gap 3 L BUN 11.8 Creatinine 0.9 Est GFR (CKD-EPI)AfAm 107.97 Est GFR (CKD-EPI)NonAf 93.16 Random Glucose 106 Calcium 8.6 Total Bilirubin 0.5 AST 20 ALT 41 Alkaline Phosphatase 93 Total Protein 6.0 L Albumin 3.0 L a/p: continue alcohol detox protocol start tegretol ER at 400mg/day per pt indication that this controls his sx better
[2018-09-05] MEDS: carBAMazepine XR 400 MG TAB.ER.12H PO SCH (12:01)
--- NOTE | 2018-09-05 13:47 | EKG ---
Test Reason : Blood Pressure : / mmHG Vent. Rate : 060 BPM Atrial Rate : 060 BPM P-R Int : 154 ms QRS Dur : 090 ms QT Int : 464 ms P-R-T Axes : 064 012 035 degrees QTc Int : 464 ms NORMAL SINUS RHYTHM VOLTAGE CRITERIA FOR LEFT VENTRICULAR HYPERTROPHY ABNORMAL ECG WHEN COMPARED WITH ECG OF 20-DEC-2016 22:44, NONSPECIFIC T WAVE ABNORMALITY HAS REPLACED INVERTED T WAVES IN INFERIOR LEADS Confirmed by MD IRVING, FABIAN ([id number]) on 09/05/2018 1:47:13 PM Referred By: Confirmed By:FABIAN VILLATORO MD
[2018-09-05] MEDS: FLUTICASONE PROP 0.05% 16 GM NASAL SPRAY NS SCH (22:06)
[2018-09-05] MEDS: MONTELUKAST NA 10 MG TABLET PO SCH (22:06)
[2018-09-05] MEDS: THIAMINE HCL 100 MG TABLET (FP) PO SCH (22:07)
[2018-09-05] MEDS: MELATONIN 5 MG TABLETS PO PRN (22:07)
[2018-09-06] MEDS ORDERED: METHADONE HCL 10 MG TABLET ONE (04:40)
[2018-09-06] MEDS ORDERED: METHADONE HCL 5 MG TABLET ONE (04:41)
[2018-09-06] MEDS ORDERED: METHADONE HCL 40 MG DISPERSABLE TABLET ONE (04:41)
[2018-09-06] MEDS: chlordiazePOXIDE HCL 25 MG CAPSULE PO SCH ×4 (05:25→22:44)
[2018-09-06] MEDS: cloNIDine HCL 0.1 MG TABLET PO PRN (05:26)
[2018-09-06] MEDS: METHADONE 80 MG, METHADONE 20 MG, METHADONE 5 MG PO SCH (05:57)
[2018-09-06] MEDS ORDERED: METHADONE HCL 40 MG DISPERSABLE TABLET PO SCH (06:00)
[2018-09-06] MEDS: PRENATAL VITAMINS W/ FOLIC ACID TABLET (FP) PO SCH (10:35)
[2018-09-06] MEDS: FLUoxetine HCL 20 MG CAPSULE (FP) PO SCH (10:35)
[2018-09-06] MEDS: amLODIPine BESYLATE 10 MG TABLET (FP) PO SCH (10:35)
[2018-09-06] MEDS: carBAMazepine XR 400 MG TAB.ER.12H PO SCH (10:35)
--- NOTE | 2018-09-06 16:32 | PN ---
S CIWA - CIWA Score Nausea/Vomitin Muscle Tremors: 3 Anxiety: 3 Agitation: 1-Slight > Activity Paroxysmal Sweats: 3 Orientation: 2-Disoriented Date<2 days Tacttile Disturbances: 0-None Auditory Disturbances: 2-Mild Harshness/Frighten Visual Disturbances: 0-None Headache: 0-None Present CIWA-Ar Total Score: 16 BHS Progress Note (SOAP) Subjective: Interrupted sleep, Sweating, Nausea, Body Aches, Stomach Cramping, Tremors, Fatigue, Constipation. Objective: PATIENT A & O X 2 (UNCERTAIN ABOUT CURRENT DAY / DATE). PATIENT OBSERVED AMBULATING ON UNIT UNASSISTED. IN NO ACUTE DISTRESS. 09/06/18 16:29 Vital Signs Temperature 96.4 F L 09/06/18 13:36 Pulse Rate 54 L 09/06/18 13:36 Respiratory Rate 16 09/06/18 13:36 Blood Pressure 133/82 09/06/18 13:36 O2 Sat by Pulse Oximetry (%) Laboratory Tests 09/05/18 09/05/18 09/05/18 06:30 06:30 06:30 WBC 4.1 RBC 3.91 L Hgb 12.4 Hct 37.7 MCV 96.4 H MCH 31.8 MCHC 33.0 RDW 13.9 Plt Count 244 MPV 7.8 Sodium 142 Potassium 3.9 Chloride 107 Carbon Dioxide 32 Anion Gap 3 L BUN 11.8 Creatinine 0.9 Est GFR (CKD-EPI)AfAm 107.97 Est GFR (CKD-EPI)NonAf 93.16 Random Glucose 106 Calcium 8.6 Total Bilirubin 0.5 AST 20 ALT 41 Alkaline Phosphatase 93 Total Protein 6.0 L Albumin 3.0 L RPR Titer Nonreactive LABS NOTED. Assessment: 09/06/18 16:30 WITHDRAWAL SYMPTOMS. Plan: CONTINUE DETOX. INCREASE DAILY PO WATER INTAKE. ENSURE PO FOR CALORIC SUPPLEMENTATION. PRN MOM PO FOR CONSTIPATION.
[2018-09-06] MEDS: THIAMINE HCL 100 MG TABLET (FP) PO SCH (22:44)
[2018-09-06] MEDS: MONTELUKAST NA 10 MG TABLET PO SCH (22:44)
[2018-09-06] MEDS: FLUTICASONE PROP 0.05% 16 GM NASAL SPRAY NS SCH (22:44)
[2018-09-06] MEDS: MELATONIN 5 MG TABLETS PO PRN (22:46)
[2018-09-07] MEDS ORDERED: chlordiazePOXIDE HCL 10 MG CAPSULE PO PRN
[2018-09-07] MEDS ORDERED: METHADONE HCL 40 MG DISPERSABLE TABLET ONE (04:39)
[2018-09-07] MEDS ORDERED: METHADONE HCL 10 MG TABLET ONE (04:39)
[2018-09-07] MEDS ORDERED: METHADONE HCL 5 MG TABLET ONE (04:40)
[2018-09-07] MEDS: chlordiazePOXIDE HCL 10 MG CAPSULE PO SCH ×4 (06:22→22:52)
[2018-09-07] MEDS: METHADONE 80 MG, METHADONE 20 MG, METHADONE 5 MG PO SCH (06:24)
[2018-09-07] MEDS: cloNIDine HCL 0.1 MG TABLET PO PRN (06:24)
[2018-09-07] MEDS: amLODIPine BESYLATE 10 MG TABLET (FP) PO SCH (10:33)
[2018-09-07] MEDS: PRENATAL VITAMINS W/ FOLIC ACID TABLET (FP) PO SCH (10:33)
[2018-09-07] MEDS: carBAMazepine XR 400 MG TAB.ER.12H PO SCH (10:36)
[2018-09-07] MEDS: FLUoxetine HCL 20 MG CAPSULE (FP) PO SCH (10:37)
--- NOTE | 2018-09-07 15:37 | PN ---
S CIWA - CIWA Score Nausea/Vomitin-Mild Nausea/No Vomiting Muscle Tremors: 2 Anxiety: 3 Agitation: 2 Paroxysmal Sweats: 1-Minimal Palms Moist Orientation: 0-Oriented Tacttile Disturbances: 1-Very Mild Itch/Numbness Auditory Disturbances: 0-None Visual Disturbances: 0-None Headache: 1-Very Mild CIWA-Ar Total Score: 11 S Progress Note (SOAP) Subjective: patient report that he is feeling sleepy after librium hold librium if necessary change librium 10 mg po once for 09/08/18 ammonia serum level Objective: 09/07/18 15:36 Vital Signs Temperature 96.4 F L 09/07/18 13:43 Pulse Rate 51 L 09/07/18 13:43 Respiratory Rate 16 09/07/18 13:43 Blood Pressure 127/74 09/07/18 13:43 O2 Sat by Pulse Oximetry (%) Laboratory Last Values WBC 4.1 K/mm3 (4.0-10.0) 09/05/18 06:30 RBC 3.91 M/mm3 (4.00-5.60) L 09/05/18 06:30 Hgb 12.4 GM/dL (11.7-16.9) 09/05/18 06:30 Hct 37.7 % (35.4-49) 09/05/18 06:30 MCV 96.4 fl (80-96) H 09/05/18 06:30 MCH 31.8 pg (25.7-33.7) 09/05/18 06:30 MCHC 33.0 g/dl (32.0-35.9) 09/05/18 06:30 RDW 13.9 % (11.9-15.9) 09/05/18 06:30 Plt Count 244 K/MM3 (134-434) 09/05/18 06:30 MPV 7.8 fl (7.5-11.1) 09/05/18 06:30 Sodium 142 mmol/L (136-145) 09/05/18 06:30 Potassium 3.9 mmol/L (3.5-5.1) 09/05/18 06:30 Chloride 107 mmol/L (98-107) 09/05/18 06:30 Carbon Dioxide 32 mmol/L (21-32) 09/05/18 06:30 Anion Gap 3 MMOL/L (8-16) L 09/05/18 06:30 BUN 11.8 mg/dL (7-18) 09/05/18 06:30 Creatinine 0.9 mg/dL (0.55-1.3) 09/05/18 06:30 Est GFR (CKD-EPI)AfAm 107.97 09/05/18 06:30 Est GFR (CKD-EPI)NonAf 93.16 09/05/18 06:30 Random Glucose 106 mg/dL (74-106) 09/05/18 06:30 Calcium 8.6 mg/dL (8.5-10.1) 09/05/18 06:30 Total Bilirubin 0.5 mg/dL (0.2-1) 09/05/18 06:30 AST 20 U/L (15-37) 09/05/18 06:30 ALT 41 U/L (13-61) 09/05/18 06:30 Alkaline Phosphatase 93 U/L (45-117) 09/05/18 06:30 Total Protein 6.0 g/dl (6.4-8.2) L 09/05/18 06:30 Albumin 3.0 g/dl (3.4-5.0) L 09/05/18 06:30 RPR Titer Nonreactive (NONREACTIVE) 09/05/18 06:30 lab noted room changed to near nurse station Assessment: 09/07/18 15:36 alcohol withdrawal sx Plan: continue alcohol detox
[2018-09-07] MEDS: FLUTICASONE PROP 0.05% 16 GM NASAL SPRAY NS SCH (22:52)
[2018-09-07] MEDS: MONTELUKAST NA 10 MG TABLET PO SCH (22:52)
[2018-09-07] MEDS: THIAMINE HCL 100 MG TABLET (FP) PO SCH (22:52)
[2018-09-08] MEDS ORDERED: METHADONE HCL 40 MG DISPERSABLE TABLET ONE (04:17)
[2018-09-08] MEDS ORDERED: METHADONE HCL 10 MG TABLET ONE (04:17)
[2018-09-08] MEDS ORDERED: METHADONE HCL 5 MG TABLET ONE (04:18)
[2018-09-08] MEDS ORDERED: chlordiazePOXIDE HCL 10 MG CAPSULE PO SCH (05:00)
[2018-09-08] MEDS: METHADONE 80 MG, METHADONE 20 MG, METHADONE 5 MG PO SCH (05:29)
[2018-09-08] MEDS: PRENATAL VITAMINS W/ FOLIC ACID TABLET (FP) PO SCH (10:33)
[2018-09-08] MEDS: amLODIPine BESYLATE 10 MG TABLET (FP) PO SCH (10:33)
[2018-09-08] MEDS: FLUoxetine HCL 20 MG CAPSULE (FP) PO SCH (10:33)
[2018-09-08] MEDS: carBAMazepine XR 400 MG TAB.ER.12H PO SCH (10:34)
--- NOTE | 2018-09-08 15:48 | PN ---
[facility] CIWA - CIWA Score Nausea/Vomitin-No Nausea/No Vomiting Muscle Tremors: None Anxiety: 1-Mildly Anxious Agitation: 0-Normal Activity Paroxysmal Sweats: No Perspiration Orientation: 0-Oriented Tacttile Disturbances: 1-Very Mild Itch/Numbness Auditory Disturbances: 0-None Visual Disturbances: 0-None Headache: 0-None Present CIWA-Ar Total Score: 2 S Progress Note (SOAP) Subjective: Fatigue (Mild). Objective: PATIENT A & O X 3, OBSERVED AMBULATING ON UNIT UNASSISTED. IN NO ACUTE DISTRESS. 09/08/18 15:45 Vital Signs Temperature 96.3 F L 09/08/18 13:48 Pulse Rate 53 L 09/08/18 13:48 Respiratory Rate 18 09/08/18 13:48 Blood Pressure 161/97 09/08/18 13:48 O2 Sat by Pulse Oximetry (%) Laboratory Tests 09/05/18 09/05/18 09/05/18 06:30 06:30 06:30 WBC 4.1 RBC 3.91 L Hgb 12.4 Hct 37.7 MCV 96.4 H MCH 31.8 MCHC 33.0 RDW 13.9 Plt Count 244 MPV 7.8 Sodium 142 Potassium 3.9 Chloride 107 Carbon Dioxide 32 Anion Gap 3 L BUN 11.8 Creatinine 0.9 Est GFR (CKD-EPI)AfAm 107.97 Est GFR (CKD-EPI)NonAf 93.16 Random Glucose 106 Calcium 8.6 Total Bilirubin 0.5 AST 20 ALT 41 Alkaline Phosphatase 93 Ammonia Total Protein 6.0 L Albumin 3.0 L RPR Titer Nonreactive 09/08/18 07:50 WBC RBC Hgb Hct MCV MCH MCHC RDW Plt Count MPV Sodium Potassium Chloride Carbon Dioxide Anion Gap BUN Creatinine Est GFR (CKD-EPI)AfAm Est GFR (CKD-EPI)NonAf Random Glucose Calcium Total Bilirubin AST ALT Alkaline Phosphatase Ammonia 62.70 H Total Protein Albumin RPR Titer LABS NOTED. Assessment: 09/08/18 15:45 COMPLETION OF DETOX REGIMEN. Plan: SINCE PATIENT REPORTS THAT CURRENT WITHDRAWAL / DETOX SYMPTOMS ARE MINIMAL IN DEGREE AND THAT HE FEELS WELL OVERALL, AT PATIENTS REQUEST, HE WAS GRANTED AN EARLY DISCHARGE FROM DETOX UNIT TODAY SO THAT HE MAY PROCEED ON TO AFTERCARE PLAN OF [facility] ([place], [place]). AMMONIA LEVEL RESULT (ELEVATED: 62.70) NOTED -TREATMENT WITH LACTULOSE TO BE STARTED WHILE PATIENT IS ADMITTED TO REHAB UNIT.
--- NOTE | 2018-09-08 15:55 | DS ---
[facility] Detox Discharge Summary Admission Date: 09/04/18 Discharge Date: 09/08/18 - History Present History: Alcohol Dependence, Cocaine Dependence, Opioid Dependence, MMTP Additional Comments: PATIENT REPORTS THAT CURRENT WITHDRAWAL / DETOX SYMPTOMS ARE MINIMAL IN DEGREE AND THAT HE FEELS WELL OVERALL AT TIME OF DISCHARGE FROM DETOX UNIT. PATIENT GOING ON TO [facility] ([place], [place]) FOR AFTERCARE. TREATMNETN WITH LACTULOSE TO BE STARTED FOR PATIENT ON REHAB UNIT. AMMONIA LEVEL TO BE CHECKED AGAIN 09/11/2018. PATIENT WAS DISCHARGED FROM DETOX UNIT TO BE TAKEN OVER TO REHAB UNIT IN STABLE MEDICAL CONDITION. Pertinent Past History: HTN, History Of Partial Removal Of Lung, TMJ, Asthma, C.O.P.D. (Emphysema), History Of Seizures (Alcohol-Related), Depression, Bipolar Disorder, Nicotine Dependence, M.M.T.P., Hyperammonemia. - Physical Exam Results Vital Signs: Vital Signs Temperature 96.3 F L 09/08/18 13:48 Pulse Rate 53 L 09/08/18 13:48 Respiratory Rate 18 09/08/18 13:48 Blood Pressure 161/97 09/08/18 13:48 O2 Sat by Pulse Oximetry (%) Pertinent Admission Physical Exam Findings: WITHDRAWAL SYMPTOMS. Laboratory Tests 09/05/18 09/05/18 09/05/18 06:30 06:30 06:30 WBC 4.1 RBC 3.91 L Hgb 12.4 Hct 37.7 MCV 96.4 H MCH 31.8 MCHC 33.0 RDW 13.9 Plt Count 244 MPV 7.8 Sodium 142 Potassium 3.9 Chloride 107 Carbon Dioxide 32 Anion Gap 3 L BUN 11.8 Creatinine 0.9 Est GFR (CKD-EPI)AfAm 107.97 Est GFR (CKD-EPI)NonAf 93.16 Random Glucose 106 Calcium 8.6 Total Bilirubin 0.5 AST 20 ALT 41 Alkaline Phosphatase 93 Ammonia Total Protein 6.0 L Albumin 3.0 L RPR Titer Nonreactive 09/08/18 07:50 WBC RBC Hgb Hct MCV MCH MCHC RDW Plt Count MPV Sodium Potassium Chloride Carbon Dioxide Anion Gap BUN Creatinine Est GFR (CKD-EPI)AfAm Est GFR (CKD-EPI)NonAf Random Glucose Calcium Total Bilirubin AST ALT Alkaline Phosphatase Ammonia 62.70 H Total Protein Albumin RPR Titer LABS NOTED. - Treatment Hospital Course: Detox Protocol Followed, Detoxed Safely, Responded well, Discharged Condition Good, Rehab Referral Accepted Patient has Accepted a Rehab Referral to: [facility] ([place], [place]). - Medication Discharge Medications: Ambulatory Orders Amlodipine Besylate [Norvasc -] 10 mg PO DAILY 02/26/16 Fluticasone Prop 0.05% Nasal [Flonase -] 1 spray NS HS 02/26/16 Montelukast Na [Singulair -] 10 mg PO HS 02/26/16 Fluoxetine HCl [Prozac] 20 mg PO DAILY 12/20/16 Albuterol Sulfate Inhaler - [Ventolin HFA Inhaler -] 2 inh IH Q4H PRN #1 inh Carbamazepine [Tegretol -] 300 mg PO DAILY 09/05/18 - Diagnosis (1) Hyperammonemia Current Visit: Yes Status: Acute (2) Alcohol dependence with uncomplicated withdrawal Current Visit: Yes Status: Acute (3) Cocaine dependence Current Visit: Yes Status: Acute Qualifiers: Substance use status: uncomplicated Qualified Code(s): F14.20 - Cocaine dependence, uncomplicated (4) Nicotine dependence Current Visit: Yes Status: Acute Qualifiers: Nicotine product type: cigarettes Substance use status: uncomplicated Qualified Code(s): F17.210 - Nicotine dependence, cigarettes, uncomplicated (5) Opioid dependence on agonist therapy Current Visit: Yes Status: Chronic (6) Asthma Current Visit: Yes Status: Chronic Qualifiers: Asthma severity: mild Asthma persistence: unspecified Asthma complication type: uncomplicated Qualified Code(s): J45.909 - Unspecified asthma, uncomplicated (7) COPD (chronic obstructive pulmonary disease) Current Visit: Yes Status: Chronic Qualifiers: COPD type: unspecified COPD Qualified Code(s): J44.9 - Chronic obstructive pulmonary disease, unspecified (8) HTN (hypertension) Current Visit: Yes Status: Chronic Qualifiers: Hypertension type: essential hypertension Qualified Code(s): I10 - Essential (primary) hypertension (9) Methadone maintenance therapy patient Current Visit: Yes Status: Chronic - AMA Did Patient Leave Against Medical Advice: No
[2018-09-08] MEDS ORDERED: chlordiazePOXIDE HCL 10 MG CAPSULE PO ONE (18:00)
[2018-09-08 19:14] VITALS: BP 146/84; PULSE 61; TEMP 97.6
[2018-09-09] MEDS ORDERED: chlordiazePOXIDE HCL 10 MG CAPSULE PO ONE (05:00)
== END 2018-09-08 19:40 | disposition home or self-care (01) | DRG 773 ==
LOC: YASAS 13:55 → Y3N 19:58
PROVIDERS: ADMIT Surgery; ATTEND Surgery
PROC: HZ2ZZZZ Detoxification Services for Substance Abuse Treatment (ICD-10-PCS; principal; 2018-09-04)
DX: F10.230 Alcohol dependence with withdrawal, uncomplicated (principal); F11.20 Opioid dependence, uncomplicated; F14.20 Cocaine dependence, uncomplicated; F17.210 Nicotine dependence, cigarettes, uncomplicated; E72.20 Disorder of urea cycle metabolism, unspecified; I10 Essential (primary) hypertension; J43.9 Emphysema, unspecified; J45.909 Unspecified asthma, uncomplicated; M26.609 Unspecified temporomandibular joint disorder, unspecified side; Z86.69 Personal history of other diseases of the nervous system and sense organs
CPT/HCPCS: 36415; 80053; 82140; 85027; 86593; 93005; 93010; J0735

== ENCOUNTER 2020-03-05 11:20 | Inpatient (IN) | payer OTHER ==
[~2020-03-05 11:20] MED LIST: ACETAMINOPHEN 325 MG TABLET (FP) PO PRN; ALBUTEROL SO4 HFA INHALER IH PRN; LACTULOSE 20 GM/30 ML UDC (FOR ORAL USE ONLY) PO SCH; LOPERAMIDE HCL 2 MG CAPSULE PO PRN; MAG HYDROX/AL HYDROX/SIMETH 30 ML UNIT-DOSE CUP PO PRN; MAGNESIUM CITRATE 300 ML BOTTLE PO PRN; MAGNESIUM HYDROX 2400MG/30ML ORAL SUSPENSION 30 ML CUP PO PRN; MELATONIN 5 MG TABLETS PO PRN; MENTHOL/PHENOL 1 EACH UD MM PRN; NICOTINE POLACRILEX 4 MG GUM BUC PRN; P-EPHED 60MG/TRIPROLIDI 2.5MG TABLET PO PRN; PRENATAL VITAMINS W/ FOLIC ACID TABLET (FP) PO ONE; amLODIPine BESYLATE 10 MG TABLET (FP) PO SCH; guaiFENesin 200 MG/10 ML 10 ML UNIT-DOSE CUPS PO PRN
[2020-03-05 14:19] VITALS: BMI 21.8
[2020-03-05] MEDS ORDERED: MAG HYDROX/AL HYDROX/SIMETH 30 ML UNIT-DOSE CUP PO PRN (14:55)
[2020-03-05] MEDS ORDERED: MAGNESIUM CITRATE 300 ML BOTTLE PO PRN (14:55)
[2020-03-05] MEDS ORDERED: P-EPHED 60MG/TRIPROLIDI 2.5MG TABLET PO PRN (14:55)
[2020-03-05] MEDS ORDERED: guaiFENesin 200 MG/10 ML 10 ML UNIT-DOSE CUPS PO PRN (14:55)
[2020-03-05] MEDS ORDERED: LOPERAMIDE HCL 2 MG CAPSULE PO PRN (14:55)
[2020-03-05] MEDS ORDERED: MAGNESIUM HYDROX 2400MG/30ML ORAL SUSPENSION 30 ML CUP PO PRN (14:55)
[2020-03-05] MEDS ORDERED: METHADONE HCL 40 MG DISPERSABLE TABLET PO SCH (15:00)
[2020-03-05] MEDS ORDERED: METHADONE 80 MG, METHADONE 20 MG PO SCH (15:00)
[2020-03-05] MEDS ORDERED: METHADONE HCL 40 MG DISPERSABLE TABLET ONE (15:31)
[2020-03-05] MEDS ORDERED: METHADONE HCL 10 MG TABLET ONE (15:32)
[2020-03-05] MEDS: GABAPENTIN 300 MG CAPSULE PO SCH ×2 (15:36→21:05)
[2020-03-05] MEDS: carBAMazepine XR 400 MG TAB.ER.12H PO SCH (15:45)
[2020-03-05] MEDS: PRENATAL VITAMINS W/ FOLIC ACID TABLET (FP) PO SCH (15:45)
[2020-03-05] MEDS ORDERED: METHADONE HCL 10 MG TABLET PO ONE (15:46)
[2020-03-05] MEDS: FLUoxetine HCL 10 MG CAPSULE PO SCH (15:50)
[2020-03-05] MEDS: hydrOXYzine PAMOATE 25 MG CAPSULE (FP) PO SCH ×2 (17:01→21:06)
[2020-03-05] MEDS: NICOTINE POLACRILEX 2 MG GUM BUC PRN (17:01)
[2020-03-05] MEDS: carBAMazepine 200 MG TABLET PO SCH (17:01)
[2020-03-05] MEDS: THIAMINE HCL 100 MG TABLET (FP) PO SCH (21:05)
[2020-03-05] MEDS: MELATONIN 5 MG TABLETS PO SCH (21:05)
[2020-03-05] MEDS: AMOX TR/POT CLAV 875MG/125MG TABLETS (FP) PO SCH (21:06)
[2020-03-05] MEDS ORDERED: carBAMazepine 200 MG TABLET PO SCH (22:00)
[2020-03-06] MEDS ORDERED: METHADONE HCL 40 MG DISPERSABLE TABLET ONE (04:45)
[2020-03-06] MEDS ORDERED: METHADONE HCL 10 MG TABLET ONE (04:45)
[2020-03-06] MEDS: hydrOXYzine PAMOATE 25 MG CAPSULE (FP) PO SCH ×5 (06:25→21:16)
[2020-03-06] MEDS: GABAPENTIN 300 MG CAPSULE PO SCH ×3 (06:25→21:15)
[2020-03-06] MEDS: METHADONE 80 MG, METHADONE 20 MG PO SCH (06:25)
[2020-03-06] MEDS: carBAMazepine 200 MG TABLET PO SCH ×2 (06:25→17:31)
[2020-03-06] MEDS ORDERED: cloNIDine HCL 0.1 MG TABLET PO ONE (07:37)
[2020-03-06 09:16] LABS: POTASSIUM 4.5 mmol/L (3.5-5.1)
[2020-03-06 09:19] LABS: HEMATOCRIT 37.7 % (35.4-49); HEMOGLOBIN 12.3 GM/dL (11.7-16.9); MCH 32.3 pg (25.7-33.7); MCHC 32.8 g/dl (32.0-35.9); MEAN CELL VOLUME 98.5 fl (80-96); MEAN PLT VOLUME 7.6 fl (7.5-11.1); PLATELET COUNT 253 K/MM3 (134-434); RBC 3.82 M/mm3 (4.00-5.60); RDW 12.3 % (11.9-15.9); WHITE BLOOD COUNT 6.5 K/mm3 (4.0-10.0)
[2020-03-06 09:21] LABS: ALBUMIN 3.4 g/dl (3.4-5.0); BLOOD UREA NITROGEN 21.2 mg/dL (7-18); CALCIUM 8.7 mg/dL (8.5-10.1)
[2020-03-06 09:24] LABS: CREATININE 1.1 mg/dL (0.55-1.3)
[2020-03-06 09:26] LABS: BILIRUBIN,TOTAL 0.2 mg/dL (0.2-1); TOT PROT 6.9 g/dl (6.4-8.2)
[2020-03-06] MEDS: PRENATAL VITAMINS W/ FOLIC ACID TABLET (FP) PO SCH ×3 (09:42→11:50)
[2020-03-06] MEDS: THIAMINE HCL 100 MG TABLET (FP) PO SCH ×3 (09:44→21:15)
[2020-03-06] MEDS: MONTELUKAST NA 10 MG TABLET PO SCH (09:46)
[2020-03-06] MEDS: FLUTICASONE PROP 0.05% 16 GM NASAL SPRAY NS SCH ×2 (09:46→09:47)
[2020-03-06] MEDS: FLUoxetine HCL 10 MG CAPSULE PO SCH (09:48)
[2020-03-06] MEDS: carBAMazepine XR 400 MG TAB.ER.12H PO SCH (09:48)
[2020-03-06] MEDS: NICOTINE 7 MG/24 HOURS TOPICAL PATCH TD SCH (10:02)
[2020-03-06] MEDS: AMOX TR/POT CLAV 875MG/125MG TABLETS (FP) PO SCH ×2 (10:02→21:15)
[2020-03-06] MEDS: NICOTINE POLACRILEX 2 MG GUM BUC PRN (10:02)
[2020-03-06] MEDS: amLODIPine BESYLATE 10 MG TABLET (FP) PO SCH (10:02)
[2020-03-06] MEDS: LISINOPRIL 5 MG TABLET PO SCH (10:02)
[2020-03-06 10:57] LABS: SICKLE CELL SCREEN NEGATIVE (NEGATIVE)
[2020-03-06] MEDS ORDERED: PT OWN MED DRAWER 7, Y5N ONE ×2 (16:58→19:11)
[2020-03-06] MEDS: MELATONIN 5 MG TABLETS PO SCH (21:15)
[2020-03-07] MEDS ORDERED: METHADONE HCL 10 MG TABLET ONE (05:38)
[2020-03-07] MEDS ORDERED: METHADONE HCL 40 MG DISPERSABLE TABLET ONE (05:38)
[2020-03-07] MEDS: METHADONE 80 MG, METHADONE 20 MG PO SCH (06:08)
[2020-03-07] MEDS: hydrOXYzine PAMOATE 25 MG CAPSULE (FP) PO SCH ×5 (06:08→21:09)
[2020-03-07] MEDS: carBAMazepine 200 MG TABLET PO SCH ×2 (06:08→17:31)
[2020-03-07] MEDS: GABAPENTIN 300 MG CAPSULE PO SCH ×3 (06:08→21:08)
[2020-03-07] MEDS ORDERED: cloNIDine HCL 0.1 MG TABLET PO ONE (07:16)
[2020-03-07] MEDS ORDERED: MASKS NR ONE (08:07)
[2020-03-07] MEDS ORDERED: PT OWN MED DRAWER 7, Y5N ONE (08:45)
[2020-03-07] MEDS: PRENATAL VITAMINS W/ FOLIC ACID TABLET (FP) PO SCH (09:31)
[2020-03-07] MEDS: amLODIPine BESYLATE 10 MG TABLET (FP) PO SCH (09:32)
[2020-03-07] MEDS: NICOTINE 7 MG/24 HOURS TOPICAL PATCH TD SCH (09:32)
[2020-03-07] MEDS: LISINOPRIL 5 MG TABLET PO SCH (09:32)
[2020-03-07] MEDS: AMOX TR/POT CLAV 875MG/125MG TABLETS (FP) PO SCH ×2 (09:33→21:09)
[2020-03-07 09:48] LABS: PH,URINE 6.5 (5.0-8.0); URINE APPEARANCE CLEAR; URINE BILIRUBIN NEGATIVE (NEGATIVE); URINE COLOR YELLOW; URINE GLUCOSE (UA) NEGATIVE (NEGATIVE); URINE KETONE NEGATIVE (NEGATIVE); URINE LEUK ESTERASE NEGATIVE (NEGATIVE); URINE NITRITE NEGATIVE (NEGATIVE); URINE PROTEIN NEGATIVE (NEGATIVE); URINE UROBILINOGEN 0.2 mg/dL (0.2-1.0)
[2020-03-07] MEDS: IBUPROFEN 400 MG TABLET (FP) PO PRN (18:08)
[2020-03-07] MEDS: THIAMINE HCL 100 MG TABLET (FP) PO SCH (21:09)
[2020-03-07] MEDS: MELATONIN 5 MG TABLETS PO SCH (21:09)
[2020-03-07] MEDS: ACETAMINOPHEN 325 MG TABLET (FP) PO PRN (23:24)
[2020-03-08] MEDS ORDERED: METHADONE HCL 40 MG DISPERSABLE TABLET ONE (05:40)
[2020-03-08] MEDS ORDERED: METHADONE HCL 10 MG TABLET ONE (05:41)
[2020-03-08] MEDS: hydrOXYzine PAMOATE 25 MG CAPSULE (FP) PO SCH ×5 (06:01→21:27)
[2020-03-08] MEDS: METHADONE 80 MG, METHADONE 20 MG PO SCH (06:01)
[2020-03-08] MEDS: carBAMazepine 200 MG TABLET PO SCH ×2 (06:01→17:43)
[2020-03-08] MEDS: GABAPENTIN 300 MG CAPSULE PO SCH ×3 (06:01→21:27)
[2020-03-08] MEDS ORDERED: cloNIDine HCL 0.1 MG TABLET PO ONE (06:56)
[2020-03-08] MEDS ORDERED: PT OWN MED DRAWER 7, Y5N ONE ×2 (08:53→17:34)
[2020-03-08] MEDS: amLODIPine BESYLATE 10 MG TABLET (FP) PO SCH (09:57)
[2020-03-08] MEDS: LISINOPRIL 5 MG TABLET PO SCH (09:57)
[2020-03-08] MEDS: AMOX TR/POT CLAV 875MG/125MG TABLETS (FP) PO SCH ×2 (09:57→21:28)
[2020-03-08] MEDS: NICOTINE 7 MG/24 HOURS TOPICAL PATCH TD SCH (09:57)
[2020-03-08] MEDS: PRENATAL VITAMINS W/ FOLIC ACID TABLET (FP) PO SCH (09:57)
[2020-03-08] MEDS: MELATONIN 5 MG TABLETS PO SCH (21:28)
[2020-03-08] MEDS: THIAMINE HCL 100 MG TABLET (FP) PO SCH (21:28)
[2020-03-09] MEDS ORDERED: METHADONE HCL 40 MG DISPERSABLE TABLET ONE (05:38)
[2020-03-09] MEDS ORDERED: METHADONE HCL 10 MG TABLET ONE (05:38)
[2020-03-09] MEDS: hydrOXYzine PAMOATE 25 MG CAPSULE (FP) PO SCH ×5 (06:02→21:10)
[2020-03-09] MEDS: carBAMazepine 200 MG TABLET PO SCH ×2 (06:02→17:42)
[2020-03-09] MEDS: GABAPENTIN 300 MG CAPSULE PO SCH ×3 (06:02→21:10)
[2020-03-09] MEDS: METHADONE 80 MG, METHADONE 20 MG PO SCH (06:02)
[2020-03-09] MEDS ORDERED: cloNIDine HCL 0.1 MG TABLET PO ONE (07:45)
[2020-03-09] MEDS: amLODIPine BESYLATE 10 MG TABLET (FP) PO SCH (09:51)
[2020-03-09] MEDS: PRENATAL VITAMINS W/ FOLIC ACID TABLET (FP) PO SCH (09:51)
[2020-03-09] MEDS: LISINOPRIL 5 MG TABLET PO SCH (09:51)
[2020-03-09] MEDS: NICOTINE 7 MG/24 HOURS TOPICAL PATCH TD SCH (09:51)
[2020-03-09] MEDS: AMOX TR/POT CLAV 875MG/125MG TABLETS (FP) PO SCH ×2 (09:51→21:11)
[2020-03-09] MEDS ORDERED: PT OWN MED DRAWER 7, Y5N ONE (17:02)
[2020-03-09] MEDS: THIAMINE HCL 100 MG TABLET (FP) PO SCH (21:10)
[2020-03-09] MEDS: MELATONIN 5 MG TABLETS PO SCH (21:10)
[2020-03-10] MEDS ORDERED: METHADONE HCL 40 MG DISPERSABLE TABLET ONE (03:34)
[2020-03-10] MEDS ORDERED: METHADONE HCL 10 MG TABLET ONE (03:35)
[2020-03-10] MEDS ORDERED: PT OWN MED DRAWER 7, Y5N ONE (03:36)
[2020-03-10] MEDS: METHADONE 80 MG, METHADONE 20 MG PO SCH (06:29)
[2020-03-10] MEDS: hydrOXYzine PAMOATE 25 MG CAPSULE (FP) PO SCH ×5 (06:30→21:24)
[2020-03-10] MEDS: GABAPENTIN 300 MG CAPSULE PO SCH ×3 (06:30→21:24)
[2020-03-10] MEDS: carBAMazepine 200 MG TABLET PO SCH ×2 (06:30→17:42)
[2020-03-10] MEDS ORDERED: cloNIDine HCL 0.1 MG TABLET PO ONE (06:51)
[2020-03-10] MEDS: PRENATAL VITAMINS W/ FOLIC ACID TABLET (FP) PO SCH (09:52)
[2020-03-10] MEDS: LISINOPRIL 5 MG TABLET PO SCH (09:52)
[2020-03-10] MEDS: NICOTINE 7 MG/24 HOURS TOPICAL PATCH TD SCH (09:52)
[2020-03-10] MEDS: amLODIPine BESYLATE 10 MG TABLET (FP) PO SCH (09:52)
[2020-03-10] MEDS: ACETAMINOPHEN 325 MG TABLET (FP) PO PRN (10:15)
[2020-03-10] MEDS: THIAMINE HCL 100 MG TABLET (FP) PO SCH (21:24)
[2020-03-10] MEDS: MELATONIN 5 MG TABLETS PO SCH (21:24)
[2020-03-11] MEDS ORDERED: METHADONE HCL 10 MG TABLET ONE (05:37)
[2020-03-11] MEDS ORDERED: METHADONE HCL 40 MG DISPERSABLE TABLET ONE (05:37)
[2020-03-11] MEDS: hydrOXYzine PAMOATE 25 MG CAPSULE (FP) PO SCH ×5 (06:23→21:09)
[2020-03-11] MEDS: carBAMazepine 200 MG TABLET PO SCH ×2 (06:23→17:10)
[2020-03-11] MEDS: GABAPENTIN 300 MG CAPSULE PO SCH ×3 (06:23→21:09)
[2020-03-11] MEDS: METHADONE 80 MG, METHADONE 20 MG PO SCH (06:23)
[2020-03-11] MEDS ORDERED: HYDROCHLOROTHIAZIDE 25 MG TABLET (FP) PO SCH (10:00)
[2020-03-11] MEDS: LISINOPRIL 5 MG TABLET PO SCH (10:11)
[2020-03-11] MEDS: PRENATAL VITAMINS W/ FOLIC ACID TABLET (FP) PO SCH (10:11)
[2020-03-11] MEDS: NICOTINE 7 MG/24 HOURS TOPICAL PATCH TD SCH (10:12)
[2020-03-11] MEDS ORDERED: cloNIDine HCL 0.1 MG TABLET PO ONE (12:40)
[2020-03-11] MEDS ORDERED: PT OWN MED DRAWER 7, Y5N ONE (15:55)
[2020-03-11] MEDS: MONTELUKAST NA 10 MG TABLET PO SCH (21:09)
[2020-03-11] MEDS: THIAMINE HCL 100 MG TABLET (FP) PO SCH (21:09)
[2020-03-11] MEDS: MELATONIN 5 MG TABLETS PO SCH (21:09)
[2020-03-11] MEDS: LISINOPRIL 10 MG TABLET PO SCH (21:09)
[2020-03-11] MEDS: ALBUTEROL SO4 HFA INHALER IH PRN (21:11)
[2020-03-11] MEDS ORDERED: LISINOPRIL 10 MG TABLET PO SCH (22:00)
[2020-03-12] MEDS ORDERED: METHADONE HCL 10 MG TABLET ONE (04:46)
[2020-03-12] MEDS ORDERED: METHADONE HCL 40 MG DISPERSABLE TABLET ONE (04:46)
[2020-03-12] MEDS: LISINOPRIL 10 MG TABLET PO SCH ×2 (06:32→21:14)
[2020-03-12] MEDS: GABAPENTIN 300 MG CAPSULE PO SCH ×3 (06:32→21:14)
[2020-03-12] MEDS: hydrOXYzine PAMOATE 25 MG CAPSULE (FP) PO SCH ×5 (06:32→21:15)
[2020-03-12] MEDS: carBAMazepine 200 MG TABLET PO SCH ×2 (06:32→17:35)
[2020-03-12] MEDS: METHADONE 80 MG, METHADONE 20 MG PO SCH (06:33)
[2020-03-12] MEDS: NICOTINE 7 MG/24 HOURS TOPICAL PATCH TD SCH (10:39)
[2020-03-12] MEDS: PRENATAL VITAMINS W/ FOLIC ACID TABLET (FP) PO SCH (10:40)
[2020-03-12] MEDS: ALBUTEROL SO4 HFA INHALER IH PRN (10:42)
[2020-03-12] MEDS: FLUoxetine HCL 20 MG CAPSULE PO SCH (14:27)
[2020-03-12] MEDS ORDERED: PT OWN MED DRAWER 7, Y5N ONE (16:52)
[2020-03-12] MEDS: MELATONIN 5 MG TABLETS PO PRN (21:14)
[2020-03-12] MEDS: THIAMINE HCL 100 MG TABLET (FP) PO SCH (21:14)
[2020-03-12] MEDS: MONTELUKAST NA 10 MG TABLET PO SCH (21:14)
[2020-03-12] MEDS ORDERED: LISINOPRIL 20 MG TABLET PO ONE (23:20)
[2020-03-12] MEDS: ACETAMINOPHEN 325 MG TABLET (FP) PO PRN (23:29)
[2020-03-13] MEDS ORDERED: METHADONE HCL 40 MG DISPERSABLE TABLET ONE (05:38)
[2020-03-13] MEDS ORDERED: METHADONE HCL 10 MG TABLET ONE (05:39)
[2020-03-13] MEDS: hydrOXYzine PAMOATE 25 MG CAPSULE (FP) PO SCH ×5 (06:07→21:51)
[2020-03-13] MEDS: GABAPENTIN 300 MG CAPSULE PO SCH ×3 (06:07→21:52)
[2020-03-13] MEDS: LISINOPRIL 10 MG TABLET PO SCH (06:07)
[2020-03-13] MEDS: carBAMazepine 200 MG TABLET PO SCH ×2 (06:07→18:30)
[2020-03-13] MEDS: METHADONE 80 MG, METHADONE 20 MG PO SCH (06:07)
[2020-03-13] MEDS: NICOTINE 7 MG/24 HOURS TOPICAL PATCH TD SCH (10:11)
[2020-03-13] MEDS: PRENATAL VITAMINS W/ FOLIC ACID TABLET (FP) PO SCH (10:11)
[2020-03-13] MEDS: FLUoxetine HCL 20 MG CAPSULE PO SCH (10:11)
[2020-03-13] MEDS: ACETAMINOPHEN 325 MG TABLET (FP) PO PRN (13:22)
[2020-03-13] MEDS: IBUPROFEN 400 MG TABLET (FP) PO PRN (15:35)
[2020-03-13] MEDS ORDERED: PT OWN MED DRAWER 7, Y5N ONE ×2 (17:04→17:28)
[2020-03-13] MEDS: THIAMINE HCL 100 MG TABLET (FP) PO SCH (21:51)
[2020-03-13] MEDS: MELATONIN 5 MG TABLETS PO PRN (21:51)
[2020-03-13] MEDS: MONTELUKAST NA 10 MG TABLET PO SCH (21:52)
[2020-03-13] MEDS: LISINOPRIL 20 MG TABLET PO SCH (21:53)
[2020-03-14] MEDS ORDERED: METHADONE HCL 40 MG DISPERSABLE TABLET ONE (06:44)
[2020-03-14] MEDS: GABAPENTIN 300 MG CAPSULE PO SCH ×3 (06:45→21:20)
[2020-03-14] MEDS ORDERED: METHADONE HCL 10 MG TABLET ONE (06:45)
[2020-03-14] MEDS: LISINOPRIL 20 MG TABLET PO SCH ×2 (06:45→21:20)
[2020-03-14] MEDS: carBAMazepine 200 MG TABLET PO SCH ×2 (06:45→18:23)
[2020-03-14] MEDS: METHADONE 80 MG, METHADONE 20 MG PO SCH (06:45)
[2020-03-14] MEDS: hydrOXYzine PAMOATE 25 MG CAPSULE (FP) PO SCH ×5 (06:45→21:20)
[2020-03-14] MEDS: PRENATAL VITAMINS W/ FOLIC ACID TABLET (FP) PO SCH (09:41)
[2020-03-14] MEDS: FLUoxetine HCL 20 MG CAPSULE PO SCH (09:41)
[2020-03-14] MEDS: NICOTINE 7 MG/24 HOURS TOPICAL PATCH TD SCH (10:29)
[2020-03-14] MEDS: IBUPROFEN 400 MG TABLET (FP) PO PRN (15:56)
[2020-03-14] MEDS ORDERED: PT OWN MED DRAWER 7, Y5N ONE (18:23)
[2020-03-14] MEDS: ACETAMINOPHEN 325 MG TABLET (FP) PO PRN (18:57)
[2020-03-14] MEDS: THIAMINE HCL 100 MG TABLET (FP) PO SCH (21:20)
[2020-03-14] MEDS: MONTELUKAST NA 10 MG TABLET PO SCH (21:20)
[2020-03-15] MEDS ORDERED: METHADONE HCL 40 MG DISPERSABLE TABLET ONE (03:17)
[2020-03-15] MEDS ORDERED: METHADONE HCL 10 MG TABLET ONE (03:17)
[2020-03-15] MEDS: METHADONE 80 MG, METHADONE 20 MG PO SCH (06:01)
[2020-03-15] MEDS: hydrOXYzine PAMOATE 25 MG CAPSULE (FP) PO SCH ×5 (06:02→21:30)
[2020-03-15] MEDS: GABAPENTIN 300 MG CAPSULE PO SCH ×3 (06:02→21:30)
[2020-03-15] MEDS: carBAMazepine 200 MG TABLET PO SCH ×2 (06:02→17:08)
[2020-03-15] MEDS: LISINOPRIL 20 MG TABLET PO SCH ×2 (06:02→21:30)
[2020-03-15] MEDS ORDERED: MASKS NR ONE (09:29)
[2020-03-15] MEDS: FLUoxetine HCL 20 MG CAPSULE PO SCH (10:26)
[2020-03-15] MEDS: PRENATAL VITAMINS W/ FOLIC ACID TABLET (FP) PO SCH (10:26)
[2020-03-15] MEDS: NICOTINE 7 MG/24 HOURS TOPICAL PATCH TD SCH (10:27)
[2020-03-15] MEDS: NICOTINE POLACRILEX 2 MG GUM BUC PRN (11:27)
[2020-03-15] MEDS: THIAMINE HCL 100 MG TABLET (FP) PO SCH (21:30)
[2020-03-15] MEDS: MELATONIN 5 MG TABLETS PO PRN (21:30)
[2020-03-15] MEDS: MONTELUKAST NA 10 MG TABLET PO SCH (21:30)
[2020-03-16] MEDS ORDERED: METHADONE HCL 40 MG DISPERSABLE TABLET ONE (03:17)
[2020-03-16] MEDS ORDERED: METHADONE HCL 10 MG TABLET ONE (03:18)
[2020-03-16] MEDS: METHADONE 80 MG, METHADONE 20 MG PO SCH (06:05)
[2020-03-16] MEDS: GABAPENTIN 300 MG CAPSULE PO SCH ×3 (06:05→21:05)
[2020-03-16] MEDS: LISINOPRIL 20 MG TABLET PO SCH ×2 (06:05→21:05)
[2020-03-16] MEDS: carBAMazepine 200 MG TABLET PO SCH ×2 (06:05→17:31)
[2020-03-16] MEDS: hydrOXYzine PAMOATE 25 MG CAPSULE (FP) PO SCH ×5 (06:05→21:06)
[2020-03-16] MEDS: PRENATAL VITAMINS W/ FOLIC ACID TABLET (FP) PO SCH (10:06)
[2020-03-16] MEDS: NICOTINE 7 MG/24 HOURS TOPICAL PATCH TD SCH (10:06)
[2020-03-16] MEDS: FLUoxetine HCL 20 MG CAPSULE PO SCH (10:06)
[2020-03-16] MEDS: ACETAMINOPHEN 325 MG TABLET (FP) PO PRN (16:39)
[2020-03-16] MEDS: MONTELUKAST NA 10 MG TABLET PO SCH (21:05)
[2020-03-16] MEDS: MELATONIN 5 MG TABLETS PO PRN (21:05)
[2020-03-16] MEDS: THIAMINE HCL 100 MG TABLET (FP) PO SCH (21:05)
[2020-03-17] MEDS ORDERED: METHADONE HCL 10 MG TABLET ONE (04:33)
[2020-03-17] MEDS ORDERED: METHADONE HCL 40 MG DISPERSABLE TABLET ONE (04:33)
[2020-03-17] MEDS: carBAMazepine 200 MG TABLET PO SCH ×2 (05:57→17:26)
[2020-03-17] MEDS: hydrOXYzine PAMOATE 25 MG CAPSULE (FP) PO SCH ×5 (05:58→21:50)
[2020-03-17] MEDS: METHADONE 80 MG, METHADONE 20 MG PO SCH (05:58)
[2020-03-17] MEDS: LISINOPRIL 20 MG TABLET PO SCH ×2 (05:58→21:51)
[2020-03-17] MEDS: GABAPENTIN 300 MG CAPSULE PO SCH ×3 (05:58→21:51)
[2020-03-17] MEDS ORDERED: HYDROCHLOROTHIAZIDE 25 MG TABLET (FP) PO ONE ×2 (09:06→15:06)
[2020-03-17] MEDS ORDERED: HYDROCHLOROTHIAZIDE 25 MG TABLET (FP) PO SCH (10:00)
[2020-03-17] MEDS: PRENATAL VITAMINS W/ FOLIC ACID TABLET (FP) PO SCH (10:25)
[2020-03-17] MEDS: NICOTINE 7 MG/24 HOURS TOPICAL PATCH TD SCH (10:25)
[2020-03-17] MEDS: FLUoxetine HCL 20 MG CAPSULE PO SCH (10:25)
[2020-03-17] MEDS: NICOTINE POLACRILEX 2 MG GUM BUC PRN (13:22)
[2020-03-17] MEDS ORDERED: PT OWN MED DRAWER 7, Y5N ONE (19:29)
[2020-03-17] MEDS: THIAMINE HCL 100 MG TABLET (FP) PO SCH (21:50)
[2020-03-17] MEDS: MELATONIN 5 MG TABLETS PO PRN (21:50)
[2020-03-17] MEDS: MONTELUKAST NA 10 MG TABLET PO SCH (21:51)
[2020-03-18] MEDS ORDERED: METHADONE HCL 10 MG TABLET ONE (04:23)
[2020-03-18] MEDS ORDERED: METHADONE HCL 40 MG DISPERSABLE TABLET ONE (04:23)
[2020-03-18] MEDS: GABAPENTIN 300 MG CAPSULE PO SCH ×3 (05:48→21:09)
[2020-03-18] MEDS: LISINOPRIL 20 MG TABLET PO SCH ×2 (05:48→21:09)
[2020-03-18] MEDS: hydrOXYzine PAMOATE 25 MG CAPSULE (FP) PO SCH ×5 (05:48→21:09)
[2020-03-18] MEDS: carBAMazepine 200 MG TABLET PO SCH ×2 (05:48→17:05)
[2020-03-18] MEDS: METHADONE 80 MG, METHADONE 20 MG PO SCH (05:49)
[2020-03-18] MEDS: NICOTINE 7 MG/24 HOURS TOPICAL PATCH TD SCH (09:41)
[2020-03-18] MEDS: HYDROCHLOROTHIAZIDE 25 MG TABLET (FP) PO SCH (09:41)
[2020-03-18] MEDS: FLUoxetine HCL 20 MG CAPSULE PO SCH (09:42)
[2020-03-18] MEDS: PRENATAL VITAMINS W/ FOLIC ACID TABLET (FP) PO SCH (09:42)
[2020-03-18] MEDS ORDERED: HYDROCHLOROTHIAZIDE 25 MG TABLET (FP) PO SCH (10:00)
[2020-03-18] MEDS ORDERED: PT OWN MED DRAWER 7, Y5N ONE (16:31)
[2020-03-18] MEDS: MELATONIN 5 MG TABLETS PO PRN (21:09)
[2020-03-18] MEDS: THIAMINE HCL 100 MG TABLET (FP) PO SCH (21:09)
[2020-03-18] MEDS: MONTELUKAST NA 10 MG TABLET PO SCH (21:09)
[2020-03-19] MEDS ORDERED: METHADONE HCL 40 MG DISPERSABLE TABLET ONE (04:16)
[2020-03-19] MEDS ORDERED: METHADONE HCL 10 MG TABLET ONE (04:16)
[2020-03-19] MEDS: LISINOPRIL 20 MG TABLET PO SCH ×2 (06:03→21:42)
[2020-03-19] MEDS: carBAMazepine 200 MG TABLET PO SCH ×2 (06:03→17:21)
[2020-03-19] MEDS: hydrOXYzine PAMOATE 25 MG CAPSULE (FP) PO SCH ×5 (06:03→21:42)
[2020-03-19] MEDS: GABAPENTIN 300 MG CAPSULE PO SCH ×3 (06:04→21:42)
[2020-03-19] MEDS: METHADONE 80 MG, METHADONE 20 MG PO SCH (06:04)
[2020-03-19] MEDS ORDERED: MASKS NR ONE (06:49)
[2020-03-19] MEDS: PRENATAL VITAMINS W/ FOLIC ACID TABLET (FP) PO SCH (10:18)
[2020-03-19] MEDS: NICOTINE 7 MG/24 HOURS TOPICAL PATCH TD SCH (10:18)
[2020-03-19] MEDS: HYDROCHLOROTHIAZIDE 25 MG TABLET (FP) PO SCH (10:18)
[2020-03-19] MEDS: FLUoxetine HCL 20 MG CAPSULE PO SCH (10:18)
[2020-03-19] MEDS: ALBUTEROL SO4 HFA INHALER IH PRN (10:19)
[2020-03-19] MEDS: ACETAMINOPHEN 325 MG TABLET (FP) PO PRN (14:35)
[2020-03-19] MEDS ORDERED: PT OWN MED DRAWER 7, Y5N ONE (16:51)
[2020-03-19] MEDS: MONTELUKAST NA 10 MG TABLET PO SCH (21:42)
[2020-03-19] MEDS: THIAMINE HCL 100 MG TABLET (FP) PO SCH (21:42)
[2020-03-19] MEDS: MELATONIN 5 MG TABLETS PO PRN (21:42)
[2020-03-20] MEDS ORDERED: METHADONE HCL 40 MG DISPERSABLE TABLET ONE (03:16)
[2020-03-20] MEDS ORDERED: METHADONE HCL 10 MG TABLET ONE (03:17)
[2020-03-20] MEDS: METHADONE 80 MG, METHADONE 20 MG PO SCH (06:29)
[2020-03-20] MEDS: LISINOPRIL 20 MG TABLET PO SCH ×2 (06:29→21:14)
[2020-03-20] MEDS: carBAMazepine 200 MG TABLET PO SCH ×2 (06:29→17:07)
[2020-03-20] MEDS: GABAPENTIN 300 MG CAPSULE PO SCH ×3 (06:29→21:14)
[2020-03-20] MEDS: hydrOXYzine PAMOATE 25 MG CAPSULE (FP) PO SCH ×5 (06:29→21:14)
[2020-03-20] MEDS: NICOTINE 7 MG/24 HOURS TOPICAL PATCH TD SCH (10:33)
[2020-03-20] MEDS: FLUoxetine HCL 20 MG CAPSULE PO SCH (10:33)
[2020-03-20] MEDS: HYDROCHLOROTHIAZIDE 25 MG TABLET (FP) PO SCH (10:33)
[2020-03-20] MEDS: PRENATAL VITAMINS W/ FOLIC ACID TABLET (FP) PO SCH (10:33)
[2020-03-20] MEDS: THIAMINE HCL 100 MG TABLET (FP) PO SCH (21:14)
[2020-03-20] MEDS: MELATONIN 5 MG TABLETS PO PRN (21:14)
[2020-03-20] MEDS: MONTELUKAST NA 10 MG TABLET PO SCH (21:14)
[2020-03-21] MEDS ORDERED: METHADONE HCL 40 MG DISPERSABLE TABLET ONE (03:10)
[2020-03-21] MEDS ORDERED: METHADONE HCL 10 MG TABLET ONE (03:10)
[2020-03-21] MEDS: hydrOXYzine PAMOATE 25 MG CAPSULE (FP) PO SCH ×5 (06:02→21:40)
[2020-03-21] MEDS: GABAPENTIN 300 MG CAPSULE PO SCH ×3 (06:02→21:40)
[2020-03-21] MEDS: METHADONE 80 MG, METHADONE 20 MG PO SCH (06:02)
[2020-03-21] MEDS: LISINOPRIL 20 MG TABLET PO SCH ×2 (06:02→21:40)
[2020-03-21] MEDS: carBAMazepine 200 MG TABLET PO SCH ×2 (06:02→17:18)
[2020-03-21] MEDS: HYDROCHLOROTHIAZIDE 25 MG TABLET (FP) PO SCH (10:39)
[2020-03-21] MEDS: FLUoxetine HCL 20 MG CAPSULE PO SCH (10:39)
[2020-03-21] MEDS: NICOTINE 7 MG/24 HOURS TOPICAL PATCH TD SCH (10:39)
[2020-03-21] MEDS: PRENATAL VITAMINS W/ FOLIC ACID TABLET (FP) PO SCH (10:40)
[2020-03-21] MEDS: THIAMINE HCL 100 MG TABLET (FP) PO SCH (21:40)
[2020-03-21] MEDS: MELATONIN 5 MG TABLETS PO PRN (21:40)
[2020-03-21] MEDS: MONTELUKAST NA 10 MG TABLET PO SCH (21:40)
[2020-03-22] MEDS ORDERED: METHADONE HCL 40 MG DISPERSABLE TABLET ONE (03:13)
[2020-03-22] MEDS ORDERED: METHADONE HCL 10 MG TABLET ONE (03:13)
[2020-03-22] MEDS ORDERED: PT OWN MED DRAWER 7, Y5N ONE (03:16)
[2020-03-22] MEDS: LISINOPRIL 20 MG TABLET PO SCH ×2 (06:18→21:51)
[2020-03-22] MEDS: hydrOXYzine PAMOATE 25 MG CAPSULE (FP) PO SCH ×5 (06:18→21:51)
[2020-03-22] MEDS: carBAMazepine 200 MG TABLET PO SCH ×2 (06:18→18:12)
[2020-03-22] MEDS: METHADONE 80 MG, METHADONE 20 MG PO SCH (06:18)
[2020-03-22] MEDS: GABAPENTIN 300 MG CAPSULE PO SCH ×3 (06:18→21:52)
[2020-03-22] MEDS: HYDROCHLOROTHIAZIDE 25 MG TABLET (FP) PO SCH (10:35)
[2020-03-22] MEDS: NICOTINE 7 MG/24 HOURS TOPICAL PATCH TD SCH (10:35)
[2020-03-22] MEDS: FLUoxetine HCL 20 MG CAPSULE PO SCH (10:35)
[2020-03-22] MEDS: PRENATAL VITAMINS W/ FOLIC ACID TABLET (FP) PO SCH (10:35)
[2020-03-22] MEDS: ALBUTEROL SO4 HFA INHALER IH PRN (10:36)
[2020-03-22] MEDS: MONTELUKAST NA 10 MG TABLET PO SCH (21:51)
[2020-03-22] MEDS: MELATONIN 5 MG TABLETS PO PRN (21:51)
[2020-03-22] MEDS: THIAMINE HCL 100 MG TABLET (FP) PO SCH (21:51)
[2020-03-23] MEDS ORDERED: METHADONE HCL 40 MG DISPERSABLE TABLET ONE (04:03)
[2020-03-23] MEDS ORDERED: METHADONE HCL 10 MG TABLET ONE (04:04)
[2020-03-23] MEDS: GABAPENTIN 300 MG CAPSULE PO SCH ×3 (07:03→21:33)
[2020-03-23] MEDS: METHADONE 80 MG, METHADONE 20 MG PO SCH (07:03)
[2020-03-23] MEDS: LISINOPRIL 20 MG TABLET PO SCH ×2 (07:03→21:33)
[2020-03-23] MEDS: carBAMazepine 200 MG TABLET PO SCH ×2 (07:03→18:00)
[2020-03-23] MEDS: hydrOXYzine PAMOATE 25 MG CAPSULE (FP) PO SCH ×5 (07:03→21:32)
[2020-03-23] MEDS: HYDROCHLOROTHIAZIDE 25 MG TABLET (FP) PO SCH (10:27)
[2020-03-23] MEDS: PRENATAL VITAMINS W/ FOLIC ACID TABLET (FP) PO SCH (10:27)
[2020-03-23] MEDS: FLUoxetine HCL 20 MG CAPSULE PO SCH (10:27)
[2020-03-23] MEDS: NICOTINE 7 MG/24 HOURS TOPICAL PATCH TD SCH (10:27)
[2020-03-23] MEDS: ALBUTEROL SO4 HFA INHALER IH PRN (10:28)
[2020-03-23] MEDS: THIAMINE HCL 100 MG TABLET (FP) PO SCH (21:32)
[2020-03-23] MEDS: MELATONIN 5 MG TABLETS PO PRN (21:32)
[2020-03-23] MEDS: MONTELUKAST NA 10 MG TABLET PO SCH (21:33)
[2020-03-24] MEDS ORDERED: METHADONE HCL 10 MG TABLET ONE (03:08)
[2020-03-24] MEDS ORDERED: METHADONE HCL 40 MG DISPERSABLE TABLET ONE (03:08)
[2020-03-24] MEDS: carBAMazepine 200 MG TABLET PO SCH ×2 (06:12→17:03)
[2020-03-24] MEDS: METHADONE 80 MG, METHADONE 20 MG PO SCH (06:12)
[2020-03-24] MEDS: hydrOXYzine PAMOATE 25 MG CAPSULE (FP) PO SCH ×5 (06:12→21:24)
[2020-03-24] MEDS: GABAPENTIN 300 MG CAPSULE PO SCH ×3 (06:12→21:25)
[2020-03-24] MEDS: LISINOPRIL 20 MG TABLET PO SCH ×2 (06:12→21:25)
[2020-03-24] MEDS: NICOTINE 7 MG/24 HOURS TOPICAL PATCH TD SCH (10:13)
[2020-03-24] MEDS: FLUoxetine HCL 20 MG CAPSULE PO SCH (10:13)
[2020-03-24] MEDS: HYDROCHLOROTHIAZIDE 25 MG TABLET (FP) PO SCH (10:13)
[2020-03-24] MEDS: PRENATAL VITAMINS W/ FOLIC ACID TABLET (FP) PO SCH (10:13)
[2020-03-24] MEDS: NICOTINE POLACRILEX 2 MG GUM BUC PRN (14:08)
[2020-03-24] MEDS: MONTELUKAST NA 10 MG TABLET PO SCH (21:25)
[2020-03-24] MEDS: THIAMINE HCL 100 MG TABLET (FP) PO SCH (21:26)
[2020-03-25] MEDS ORDERED: METHADONE HCL 40 MG DISPERSABLE TABLET ONE (03:56)
[2020-03-25] MEDS ORDERED: METHADONE HCL 10 MG TABLET ONE (03:57)
[2020-03-25] MEDS ORDERED: PT OWN MED DRAWER 7, Y5N ONE ×2 (03:58→16:36)
[2020-03-25] MEDS: METHADONE 80 MG, METHADONE 20 MG PO SCH (06:11)
[2020-03-25] MEDS: LISINOPRIL 20 MG TABLET PO SCH ×2 (06:12→21:10)
[2020-03-25] MEDS: carBAMazepine 200 MG TABLET PO SCH ×2 (06:12→17:19)
[2020-03-25] MEDS: HYDROCHLOROTHIAZIDE 25 MG TABLET (FP) PO SCH (06:12)
[2020-03-25] MEDS: GABAPENTIN 300 MG CAPSULE PO SCH ×3 (06:12→21:11)
[2020-03-25] MEDS: hydrOXYzine PAMOATE 25 MG CAPSULE (FP) PO SCH ×5 (06:36→21:11)
[2020-03-25] MEDS: NICOTINE POLACRILEX 2 MG GUM BUC PRN ×3 (06:36→17:36)
[2020-03-25] MEDS: NICOTINE 7 MG/24 HOURS TOPICAL PATCH TD SCH (10:32)
[2020-03-25] MEDS: FLUoxetine HCL 20 MG CAPSULE PO SCH (10:33)
[2020-03-25] MEDS: PRENATAL VITAMINS W/ FOLIC ACID TABLET (FP) PO SCH (10:33)
[2020-03-25] MEDS: THIAMINE HCL 100 MG TABLET (FP) PO SCH (21:10)
[2020-03-25] MEDS: MELATONIN 5 MG TABLETS PO PRN (21:10)
[2020-03-25] MEDS: MONTELUKAST NA 10 MG TABLET PO SCH (21:11)
[2020-03-26] MEDS ORDERED: METHADONE HCL 40 MG DISPERSABLE TABLET ONE (03:32)
[2020-03-26] MEDS ORDERED: METHADONE HCL 10 MG TABLET ONE (03:32)
[2020-03-26] MEDS ORDERED: PT OWN MED DRAWER 7, Y5N ONE ×2 (03:35→17:28)
[2020-03-26] MEDS: METHADONE 80 MG, METHADONE 20 MG PO SCH (06:24)
[2020-03-26] MEDS: carBAMazepine 200 MG TABLET PO SCH ×2 (06:25→17:28)
[2020-03-26] MEDS: hydrOXYzine PAMOATE 25 MG CAPSULE (FP) PO SCH ×5 (06:25→21:51)
[2020-03-26] MEDS: HYDROCHLOROTHIAZIDE 25 MG TABLET (FP) PO SCH (06:25)
[2020-03-26] MEDS: LISINOPRIL 20 MG TABLET PO SCH ×2 (06:25→21:51)
[2020-03-26] MEDS: GABAPENTIN 300 MG CAPSULE PO SCH ×3 (06:25→21:53)
[2020-03-26] MEDS: NICOTINE 7 MG/24 HOURS TOPICAL PATCH TD SCH (10:25)
[2020-03-26] MEDS: PRENATAL VITAMINS W/ FOLIC ACID TABLET (FP) PO SCH (10:25)
[2020-03-26] MEDS: FLUoxetine HCL 20 MG CAPSULE PO SCH (10:25)
[2020-03-26] MEDS: ALBUTEROL SO4 HFA INHALER IH PRN (10:27)
[2020-03-26] MEDS: NICOTINE POLACRILEX 2 MG GUM BUC PRN ×2 (10:32→15:13)
[2020-03-26] MEDS: MONTELUKAST NA 10 MG TABLET PO SCH (21:50)
[2020-03-26] MEDS: MELATONIN 5 MG TABLETS PO PRN (21:51)
[2020-03-26] MEDS: THIAMINE HCL 100 MG TABLET (FP) PO SCH (21:51)
[2020-03-27] MEDS ORDERED: PT OWN MED DRAWER 7, Y5N ONE (03:43)
[2020-03-27] MEDS ORDERED: METHADONE HCL 40 MG DISPERSABLE TABLET ONE (05:53)
[2020-03-27] MEDS ORDERED: METHADONE HCL 10 MG TABLET ONE (05:54)
[2020-03-27] MEDS: GABAPENTIN 300 MG CAPSULE PO SCH ×3 (06:21→21:19)
[2020-03-27] MEDS: METHADONE 80 MG, METHADONE 20 MG PO SCH (06:21)
[2020-03-27] MEDS: hydrOXYzine PAMOATE 25 MG CAPSULE (FP) PO SCH ×5 (06:21→21:19)
[2020-03-27] MEDS: HYDROCHLOROTHIAZIDE 25 MG TABLET (FP) PO SCH (06:21)
[2020-03-27] MEDS: LISINOPRIL 20 MG TABLET PO SCH ×2 (06:21→21:19)
[2020-03-27] MEDS: carBAMazepine 200 MG TABLET PO SCH ×2 (06:21→17:30)
[2020-03-27] MEDS: PRENATAL VITAMINS W/ FOLIC ACID TABLET (FP) PO SCH (10:23)
[2020-03-27] MEDS: NICOTINE 7 MG/24 HOURS TOPICAL PATCH TD SCH (10:23)
[2020-03-27] MEDS: FLUoxetine HCL 20 MG CAPSULE PO SCH (10:23)
[2020-03-27] MEDS: NICOTINE POLACRILEX 2 MG GUM BUC PRN (10:25)
[2020-03-27] MEDS: MELATONIN 5 MG TABLETS PO PRN (21:20)
[2020-03-27] MEDS: THIAMINE HCL 100 MG TABLET (FP) PO SCH (21:20)
[2020-03-27] MEDS: MONTELUKAST NA 10 MG TABLET PO SCH (21:20)
[2020-03-28] MEDS ORDERED: METHADONE HCL 40 MG DISPERSABLE TABLET ONE (03:08)
[2020-03-28] MEDS ORDERED: METHADONE HCL 10 MG TABLET ONE (03:09)
[2020-03-28] MEDS: METHADONE 80 MG, METHADONE 20 MG PO SCH (06:04)
[2020-03-28] MEDS: hydrOXYzine PAMOATE 25 MG CAPSULE (FP) PO SCH ×5 (06:05→21:43)
[2020-03-28] MEDS: GABAPENTIN 300 MG CAPSULE PO SCH ×3 (06:05→21:43)
[2020-03-28] MEDS: carBAMazepine 200 MG TABLET PO SCH ×2 (06:05→17:28)
[2020-03-28] MEDS: HYDROCHLOROTHIAZIDE 25 MG TABLET (FP) PO SCH (06:05)
[2020-03-28] MEDS: LISINOPRIL 20 MG TABLET PO SCH ×2 (06:05→21:43)
[2020-03-28] MEDS: FLUoxetine HCL 20 MG CAPSULE PO SCH (10:56)
[2020-03-28] MEDS: PRENATAL VITAMINS W/ FOLIC ACID TABLET (FP) PO SCH (10:56)
[2020-03-28] MEDS: NICOTINE 7 MG/24 HOURS TOPICAL PATCH TD SCH (10:57)
[2020-03-28] MEDS: NICOTINE POLACRILEX 2 MG GUM BUC PRN (10:58)
[2020-03-28] MEDS: MONTELUKAST NA 10 MG TABLET PO SCH (21:43)
[2020-03-28] MEDS: THIAMINE HCL 100 MG TABLET (FP) PO SCH (21:43)
[2020-03-29] MEDS ORDERED: METHADONE HCL 40 MG DISPERSABLE TABLET ONE (03:14)
[2020-03-29] MEDS ORDERED: METHADONE HCL 10 MG TABLET ONE (03:15)
[2020-03-29] MEDS: hydrOXYzine PAMOATE 25 MG CAPSULE (FP) PO SCH ×5 (06:11→21:10)
[2020-03-29] MEDS: HYDROCHLOROTHIAZIDE 25 MG TABLET (FP) PO SCH (06:11)
[2020-03-29] MEDS: carBAMazepine 200 MG TABLET PO SCH ×2 (06:11→17:26)
[2020-03-29] MEDS: LISINOPRIL 20 MG TABLET PO SCH ×2 (06:11→21:10)
[2020-03-29] MEDS: METHADONE 80 MG, METHADONE 20 MG PO SCH (06:11)
[2020-03-29] MEDS: GABAPENTIN 300 MG CAPSULE PO SCH ×3 (06:11→21:10)
[2020-03-29] MEDS: NICOTINE 7 MG/24 HOURS TOPICAL PATCH TD SCH (10:37)
[2020-03-29] MEDS: FLUoxetine HCL 20 MG CAPSULE PO SCH (10:37)
[2020-03-29] MEDS: PRENATAL VITAMINS W/ FOLIC ACID TABLET (FP) PO SCH (10:37)
[2020-03-29] MEDS ORDERED: PT OWN MED DRAWER 7, Y5N ONE (10:53)
[2020-03-29] MEDS: NICOTINE POLACRILEX 2 MG GUM BUC PRN (13:11)
[2020-03-29] MEDS: MELATONIN 5 MG TABLETS PO PRN (21:10)
[2020-03-29] MEDS: THIAMINE HCL 100 MG TABLET (FP) PO SCH (21:10)
[2020-03-29] MEDS: MONTELUKAST NA 10 MG TABLET PO SCH (21:10)
[2020-03-30] MEDS ORDERED: METHADONE HCL 40 MG DISPERSABLE TABLET ONE (03:11)
[2020-03-30] MEDS ORDERED: METHADONE HCL 10 MG TABLET ONE (03:11)
[2020-03-30] MEDS: carBAMazepine 200 MG TABLET PO SCH ×2 (06:04→17:06)
[2020-03-30] MEDS: hydrOXYzine PAMOATE 25 MG CAPSULE (FP) PO SCH ×5 (06:04→21:21)
[2020-03-30] MEDS: LISINOPRIL 20 MG TABLET PO SCH ×2 (06:04→21:21)
[2020-03-30] MEDS: HYDROCHLOROTHIAZIDE 25 MG TABLET (FP) PO SCH (06:04)
[2020-03-30] MEDS: GABAPENTIN 300 MG CAPSULE PO SCH ×3 (06:04→21:21)
[2020-03-30] MEDS: METHADONE 80 MG, METHADONE 20 MG PO SCH (06:04)
[2020-03-30] MEDS: FLUoxetine HCL 20 MG CAPSULE PO SCH (10:19)
[2020-03-30] MEDS: NICOTINE 7 MG/24 HOURS TOPICAL PATCH TD SCH (10:19)
[2020-03-30] MEDS: PRENATAL VITAMINS W/ FOLIC ACID TABLET (FP) PO SCH (10:19)
[2020-03-30] MEDS: MONTELUKAST NA 10 MG TABLET PO SCH (21:21)
[2020-03-30] MEDS: MELATONIN 5 MG TABLETS PO PRN (21:21)
[2020-03-30] MEDS: THIAMINE HCL 100 MG TABLET (FP) PO SCH (21:21)
[2020-03-31] MEDS ORDERED: METHADONE HCL 40 MG DISPERSABLE TABLET ONE (03:57)
[2020-03-31] MEDS ORDERED: METHADONE HCL 10 MG TABLET ONE (03:58)
[2020-03-31] MEDS: METHADONE 80 MG, METHADONE 20 MG PO SCH (06:08)
[2020-03-31] MEDS: carBAMazepine 200 MG TABLET PO SCH ×2 (06:09→17:15)
[2020-03-31] MEDS: hydrOXYzine PAMOATE 25 MG CAPSULE (FP) PO SCH ×5 (06:09→21:19)
[2020-03-31] MEDS: LISINOPRIL 20 MG TABLET PO SCH ×2 (06:09→21:19)
[2020-03-31] MEDS: GABAPENTIN 300 MG CAPSULE PO SCH ×3 (06:09→21:19)
[2020-03-31] MEDS: HYDROCHLOROTHIAZIDE 25 MG TABLET (FP) PO SCH (06:09)
[2020-03-31] MEDS: FLUoxetine HCL 20 MG CAPSULE PO SCH (10:50)
[2020-03-31] MEDS: NICOTINE POLACRILEX 2 MG GUM BUC PRN (10:50)
[2020-03-31] MEDS: NICOTINE 7 MG/24 HOURS TOPICAL PATCH TD SCH (10:50)
[2020-03-31] MEDS: PRENATAL VITAMINS W/ FOLIC ACID TABLET (FP) PO SCH (10:50)
[2020-03-31] MEDS: MONTELUKAST NA 10 MG TABLET PO SCH (21:19)
[2020-03-31] MEDS: THIAMINE HCL 100 MG TABLET (FP) PO SCH (21:20)
[2020-03-31] MEDS: MELATONIN 5 MG TABLETS PO PRN (21:21)
[2020-04-01] MEDS ORDERED: METHADONE HCL 40 MG DISPERSABLE TABLET ONE (03:12)
[2020-04-01] MEDS ORDERED: METHADONE HCL 10 MG TABLET ONE (03:12)
[2020-04-01] MEDS: METHADONE 80 MG, METHADONE 20 MG PO SCH (06:12)
[2020-04-01] MEDS: HYDROCHLOROTHIAZIDE 25 MG TABLET (FP) PO SCH (06:12)
[2020-04-01] MEDS: hydrOXYzine PAMOATE 25 MG CAPSULE (FP) PO SCH ×5 (06:13→21:21)
[2020-04-01] MEDS: LISINOPRIL 20 MG TABLET PO SCH ×2 (06:13→21:21)
[2020-04-01] MEDS: GABAPENTIN 300 MG CAPSULE PO SCH ×3 (06:13→21:21)
[2020-04-01] MEDS: carBAMazepine 200 MG TABLET PO SCH ×2 (06:13→17:15)
[2020-04-01] MEDS: FLUoxetine HCL 20 MG CAPSULE PO SCH (10:11)
[2020-04-01] MEDS: PRENATAL VITAMINS W/ FOLIC ACID TABLET (FP) PO SCH (10:11)
[2020-04-01] MEDS: NICOTINE 7 MG/24 HOURS TOPICAL PATCH TD SCH (10:11)
[2020-04-01] MEDS: NICOTINE POLACRILEX 2 MG GUM BUC PRN (10:12)
[2020-04-01] MEDS ORDERED: MASKS NR ONE (10:37)
[2020-04-01] MEDS: MELATONIN 5 MG TABLETS PO PRN (21:21)
[2020-04-01] MEDS: MONTELUKAST NA 10 MG TABLET PO SCH (21:21)
[2020-04-01] MEDS: THIAMINE HCL 100 MG TABLET (FP) PO SCH (21:21)
[2020-04-01] MEDS: ACETAMINOPHEN 325 MG TABLET (FP) PO PRN (21:22)
[2020-04-02] MEDS ORDERED: METHADONE HCL 10 MG TABLET ONE (03:19)
[2020-04-02] MEDS ORDERED: METHADONE HCL 40 MG DISPERSABLE TABLET ONE (03:19)
[2020-04-02] MEDS: LISINOPRIL 20 MG TABLET PO SCH (06:24)
[2020-04-02] MEDS: METHADONE 80 MG, METHADONE 20 MG PO SCH (06:24)
[2020-04-02] MEDS: GABAPENTIN 300 MG CAPSULE PO SCH (06:24)
[2020-04-02] MEDS: hydrOXYzine PAMOATE 25 MG CAPSULE (FP) PO SCH ×2 (06:24→09:32)
[2020-04-02] MEDS: HYDROCHLOROTHIAZIDE 25 MG TABLET (FP) PO SCH (06:24)
[2020-04-02] MEDS: carBAMazepine 200 MG TABLET PO SCH (06:24)
[2020-04-02 06:59] VITALS: BP 146/103; PULSE 69; TEMP 98.1
[2020-04-02] MEDS ORDERED: PT OWN MED DRAWER 7, Y5N ONE (09:31)
[2020-04-02] MEDS: NICOTINE 7 MG/24 HOURS TOPICAL PATCH TD SCH (09:32)
[2020-04-02] MEDS: FLUoxetine HCL 20 MG CAPSULE PO SCH (09:32)
[2020-04-02] MEDS: PRENATAL VITAMINS W/ FOLIC ACID TABLET (FP) PO SCH (09:32)
[2020-04-02] MEDS: NICOTINE POLACRILEX 2 MG GUM BUC PRN (09:32)
== END 2020-04-02 09:45 | disposition home or self-care (01) | DRG 772 ==
LOC: YASAS 11:20 → Y3W 14:03
PROVIDERS: ADMIT Allergy & Immunology; ATTEND Allergy & Immunology
PROC: HZ42ZZZ Group Counseling for Substance Abuse Treatment, Cognitive-Behavioral (ICD-10-PCS; principal; 2020-03-05)
DX: F10.20 Alcohol dependence, uncomplicated (principal); F14.20 Cocaine dependence, uncomplicated; F11.20 Opioid dependence, uncomplicated; F17.210 Nicotine dependence, cigarettes, uncomplicated; F19.282 Other psychoactive substance dependence with psychoactive substance-induced sleep disorder; F19.280 Other psychoactive substance dependence with psychoactive substance-induced anxiety disorder; F32.9 Major depressive disorder, single episode, unspecified; I10 Essential (primary) hypertension; J43.9 Emphysema, unspecified; M26.629 Arthralgia of temporomandibular joint, unspecified side; Z86.69 Personal history of other diseases of the nervous system and sense organs; Z90.49 Acquired absence of other specified parts of digestive tract; Z56.0 Unemployment, unspecified; Z59.0 Homelessness
CPT/HCPCS: 36415; 80053; 81003; 85027; 85660; 86780; 93005; 93010; J0735